=== PATIENT | male | born 1960 | race Hispanic/Latino ===

== ENCOUNTER 2019-06-19 18:31 | Emergency (ER) | payer OTHER ==
[2019-06-19 21:42] LABS: Absolute Lymphocytes (CBC) 1.3 K/uL (0.7-4.9); Basophils % 0.4 % (0-1.3); Hematocrit 47.7 % (39.6-49.0); MPV 8.3 fL (7.6-11.3); RBC Red Blood Cell Count 5.61 M/uL (4.33-5.43)
[2019-06-19 21:47] LABS: Protime INR 1.18
[2019-06-19 21:54] LABS: ALT/SGPT 29 U/L (12-78); AST/SGOT 15 U/L (15-37); Albumin 3.8 g/dL (3.4-5.0); Alkaline Phosphatase 69 U/L (45-117); BUN Blood Urea Nitrogen 15 mg/dL (7-18); Bicarbonate 25 mmol/L (21-32); Bilirubin Direct 0.4 mg/dL (0-0.2); Bilirubin Total 1.5 mg/dL (0.2-1.0); Glucose Level 191 mg/dL (74-106); Lipase 83 U/L (73-393); Magnesium 2.1 mg/dL (1.8-2.4); NT PRO-BNP 107 pg/mL (<125); Potassium 3.2 mmol/L (3.5-5.1); Protein, Total 8.1 g/dL (6.4-8.2); Sodium Level 138 mmol/L (136-145); Troponin (Emerg Dept Use Only) < 0.02 ng/mL (0.0-0.045)
[2019-06-19] MEDS ORDERED: NA CHLORIDE 0.9% 1,000 ML ONE (22:00)
--- NOTE | 2019-06-19 22:06 | RAD REPORT ---
EXAM DESCRIPTION: CT - Stone Protocol - 06/19/2019 9:29 pm CLINICAL HISTORY: Pelvic pain, bilateral groin pain COMPARISON: None. TECHNIQUE: Axial 5 mm thick images were obtained without oral or IV contrast. The [id number] span s the entirety of the system including uppermost abdomen and lung bases. All CT scans are performed using dose optimization technique as appropriate and may include automated exposure control or mA/KV adjustment according to patient size. FINDINGS: Bilateral hydronephrosis is present [id number] in degree. No obstructing or nonobstr ucting calculi. Urinary bladder is dilated. No bladder wall thickening or mass identified. Prostate g land is prominent. No invasion of adjacent structures. No seminal vesicle abnormality. No suspicious renal masses. Isodense masses and pyelonephritis are not excluded on a stone protocol CT scan. No sig nificant adrenal finding. Pronounced fatty infiltration is present in the liver. No focal liver lesion. Spleen and pancreas fernanda w no acute findings. Cholecystectomy clips are present. No biliary tree dilatation. No suspicious bowel findings. No hernia, mass or bulky lymphadenopathy noted. No free air, free fluid or inflammatory stranding. No significant bony abnormality. IMPRESSION: Mild to moderate hydronephrosis and dilated urinary bladder. No obstructing calculi seen . Prostate gland is prominent. Central prostatic mass or prostatic urethral stricture could be present. Diffuse fatty infiltration of the liver. Isodense masses and pyelonephritis are not excluded on stone protocol technique.
--- NOTE | 2019-06-19 22:46 | ER ---
Nurse's Notes [facility] Name: John Avila Age: 58 yrs Sex: Male : 1960 Arrival Date: 06/19/2019 Time: 18:34 Bed 16 Private MD: Diagnosis: Retention of urine;Type 2 diabetes mellitus;Urinary tract infection, site not specified Presentation: 06/19 18:55 Presenting complaint: Patient states: Pain in ERICA groin area since Wednesday, denies la1 fever, denies N/V/D. Transition of care: patient was not received from another setting of care. Onset of symptoms was June 19, 2019. Risk Assessment: Do you want to hurt yourself or someone else? Patient reports no desire to harm self or others. Initial Sepsis Screen: Does the patient meet any 2 criteria? No. Patient's initial sepsis screen is negative. Does the patient have a suspected source of infection? No. Patient's initial sepsis screen is negative. Care prior to arrival: None. 18:55 Method Of Arrival: Ambulatory la1 18:55 Acuity: ZANDER 3 la1 Historical: - Allergies: 18:56 NKDA; la1 - PMHx: 18:56 CHF; Diabetes - NIDDM; Hypertension; la1 - Immunization history:: Adult Immunizations up to date. - Social history:: Smoking status: Patient/guardian denies using tobacco. - Ebola Screening: : No symptoms or risks identified at this time. - Family history:: not pertinent. Screenin:38 Abuse screen: Denies threats or abuse. Nutritional screening: No deficits noted. jb4 Tuberculosis screening: No symptoms or risk factors identified. Fall Risk None identified. Assessment: 20:35 General: Appears in no apparent distress. comfortable, Behavior is calm, cooperative, jb4 appropriate for age. Pain: Complains of pain in lumbar area, left low back, right inguinal area and left inguinal area Pain does not radiate. Pain currently is 7 out of 10 on a pain scale. Neuro: Level of Consciousness is awake, alert, obeys commands, Oriented to person, place, time, situation. Cardiovascular: Patient's skin is warm and dry. Respiratory: Airway is patent Respiratory effort is even, unlabored, Respiratory pattern is regular, symmetrical. GI: No deficits noted. No signs and/or symptoms were reported involving the gastrointestinal system. : Bladder is distended Reports pain in left flank(s), urinary frequency. EENT: No deficits noted. No signs and/or symptoms were reported regarding the EENT system. Derm: Skin is intact, Skin is pink, warm \T\ dry. Musculoskeletal: Circulation, motion, and sensation intact. Range of motion: intact in all extremities. 21:30 Reassessment: Patient appears in no apparent distress at this time. Patient and/or jb4 family updated on plan of care and expected duration. Pain level reassessed. Patient is alert, oriented x 3, equal unlabored respirations, skin warm/dry/pink. 22:30 Reassessment: Patient appears in no apparent distress at this time. Patient and/or jb4 family updated on plan of care and expected duration. Pain level reassessed. Patient is alert, oriented x 3, equal unlabored respirations, skin warm/dry/pink. 900ml initial output from andersen Patient states feeling better. 22:45 Reassessment: D/c pending drainage of bladder. Currently draining at 1L/3min. jb4 22:50 Reassessment: 525 output from andersen. jb4 23:40 Reassessment: Patient appears in no apparent distress at this time. Patient and/or jb4 family updated on plan of care and expected duration. Pain level reassessed. Patient is alert, oriented x 3, equal unlabored respirations, skin warm/dry/pink. 800 ml output, Andersen clamped. 06/20 00:15 Reassessment: Patient appears in no apparent distress at this time. Patient and/or jb4 family updated on plan of care and expected duration. Pain level reassessed. Patient is alert, oriented x 3, equal unlabored respirations, skin warm/dry/pink. PT verbalized understanding of d/c and follow up instructions. ambulated out with steady gait. Vital Signs: 06/19 18:56 BP 165 / 86; Pulse 74; Resp 16; Temp 98.7; Pulse Ox 94% on R/A; Weight 108.86 kg; la1 19:53 BP 178 / 95; Pulse 99; Resp 18; Temp 98; Pulse Ox 97% on R/A; jd2 20:38 BP 171 / 99; Pulse 95; Resp 18; Pulse Ox 99% on R/A; jb4 22:10 BP 153 / 100; Pulse 97; Resp 20; Pulse Ox 100% on R/A; jd2 23:26 BP 146 / 83; Pulse 91; Resp 18; Pulse Ox 98% on R/A; jd2 ED Course: 18:34 Patient arrived in ED. am2 18:56 Triage completed. la1 18:56 Arm band placed on right wrist. la1 19:37 Presley Daley, RN is Primary Nurse. jb4 19:40 Cm Arzate MD is Attending Physician. amanda 20:38 Patient has correct armband on for positive identification. Placed in gown. Bed in low jb4 position. Call light in reach. Side rails up X 1. Pulse ox on. NIBP on. 21:15 Radiology exam delayed due to getting labs drawn at this time. nj 21:26 Inserted saline lock: 22 gauge in right antecubital area, using aseptic technique. jd2 Blood collected. 21:29 CT Stone Protocol In Process Unspecified. EDMS 21:46 XRAY Chest (1 view) In Process Unspecified. EDMS 21:55 Bladder scan completed. 980. jb4 22:44 Danie Flower MD is Referral Physician. amanda 06/20 00:15 No provider procedures requiring assistance completed. IV discontinued, intact, jb4 bleeding controlled, No redness/swelling at site. Pressure dressing applied. Administered Medications: 06/19 22:15 Drug: NS 0.9% 1000 ml Route: IV; Rate: 125 ml/hr; Site: right antecubital; jb4 06/20 00:19 Follow up: Response: No adverse reaction; IV Status: Order to discontinue infusion; IV jb4 Intake: 250ml 06/19 23:24 Drug: Rocephin 1 grams Route: IV; Rate: per protocol; Site: right antecubital; jb4 23:27 Follow up: Response: No adverse reaction; IV Status: Completed infusion; IV Intake: [id number] 23:24 Drug: Cipro 500 mg Route: PO; jb4 06/20 00:18 Follow up: Response: No adverse reaction jb4 06/19 23:25 Drug: Flomax 0.4 mg Route: PO; jb4 06/20 00:18 Follow up: Response: No adverse reaction jb4 Intake: 06/19 23:27 IV: 10ml; Total: 10ml. jb4 06/20 00:19 IV: 250ml; Total: 260ml. jb4 Output: 00:17 Urine: 2775ml (Andersen); Total: 2775ml. jb4 Outcome: 06/19 22:45 Discharge ordered by . amanda 06/20 00:15 Discharged to home ambulatory, with family. jb4 Condition: stable Discharge instructions given to patient, family, Instructed on discharge instructions, follow up and referral plans. medication usage, Demonstrated understanding of instructions, follow-up care, medications, Prescriptions given X 2. 00:20 Patient left the ED. jb4 Signatures: Dispatcher [employer] EDNY Cm Arzate MD MD cha Attema, Lee RN RN la1 Rubén Schreiber James RN RN [email or web address] Derek Trivedi Amanda am2 Corrections: (The following items were deleted from the chart) 06/19 21:56 20:35 : Reports pain in left flank(s), urinary frequency, jb4 jb4 06/20 00:19 00:18 Response: No adverse reaction; IV Status: Order to discontinue infusion; IV jb4 Intake: 300ml jb4
--- NOTE | 2019-06-19 22:46 | EDPHYS ---
Physician Documentation [facility] Name: John Avila Age: 58 yrs Sex: Male : 1960 Arrival Date: 06/19/2019 Time: 18:34 Bed 16 Private MD: Cm Monrael HPI: 06/19 21:04 This 58 yrs old Male presents to ER via Ambulatory with complaints of Groin amanda Pain. 21:04 The patient presents with abdominal pain in the lower abdomen. Onset: The amanda symptoms/episode began/occurred 3 day(s) ago. The patient presents with urinary symptoms, urinary frequency. Onset: The symptoms/episode began/occurred 3 day(s) ago. Modifying factors: The symptoms are alleviated by nothing, the symptoms are aggravated by nothing. Associated signs and symptoms: The patient has no apparent associated signs or symptoms. The symptoms do not radiate. Severity of pain: At its worst the pain was mild moderate in the emergency department the pain is unchanged. Historical: - Allergies: 18:56 NKDA; la1 - PMHx: 18:56 CHF; Diabetes - NIDDM; Hypertension; la1 - Immunization history:: Adult Immunizations up to date. - Social history:: Smoking status: Patient/guardian denies using tobacco. - Ebola Screening: : No symptoms or risks identified at this time. - Family history:: not pertinent. ROS: 21:04 Constitutional: Negative for fever, chills, and weight loss, Eyes: Negative for injury, amanda pain, redness, and discharge, ENT: Negative for injury, pain, and discharge, Neck: Negative for injury, pain, and swelling, Cardiovascular: Negative for chest pain, palpitations, and edema, Respiratory: Negative for shortness of breath, cough, wheezing, and pleuritic chest pain, Back: Negative for injury and pain, : Negative for injury, bleeding, discharge, and swelling, MS/Extremity: Negative for injury and deformity, Skin: Negative for injury, rash, and discoloration, Neuro: Negative for headache, weakness, numbness, tingling, and seizure, Psych: Negative for depression, anxiety, suicide ideation, homicidal ideation, and hallucinations, Allergy/Immunology: Negative for hives, rash, and allergies, Endocrine: Negative for neck swelling, polydipsia, polyuria, polyphagia, and marked weight changes, Hematologic/Lymphatic: Negative for swollen nodes, abnormal bleeding, and unusual bruising. 21:04 Abdomen/GI: Positive for abdominal pain, of the suprapubic area, right lower quadrant and left lower quadrant. Exam: 21:04 Constitutional: This is a well developed, well nourished patient who is awake, alert, amanda and in no acute distress. Head/Face: Normocephalic, atraumatic. Eyes: Pupils equal round and reactive to light, extra-ocular motions intact. Lids and lashes normal. Conjunctiva and sclera are non-icteric and not injected. Cornea within normal limits. Periorbital areas with no swelling, redness, or edema. ENT: Nares patent. No nasal discharge, no septal abnormalities noted. Tympanic membranes are normal and external auditory canals are clear. Oropharynx with no redness, swelling, or masses, exudates, or evidence of obstruction, uvula midline. Mucous membranes moist. Neck: Trachea midline, no thyromegaly or masses palpated, and no cervical lymphadenopathy. Supple, full range of motion without nuchal rigidity, or vertebral point tenderness. No Meningismus. Chest/axilla: Normal chest wall appearance and motion. Nontender with no deformity. No lesions are appreciated. Cardiovascular: Regular rate and rhythm with a normal S1 and S2. No gallops, murmurs, or rubs. Normal PMI, no JVD. No pulse deficits. Respiratory: Lungs have equal breath sounds bilaterally, clear to auscultation and percussion. No rales, rhonchi or wheezes noted. No increased work of breathing, no retractions or nasal flaring. Back: No spinal tenderness. No costovertebral tenderness. Full range of motion. Male : Normal genitalia with no discharge or lesions. Skin: Warm, dry with normal turgor. Normal color with no rashes, no lesions, and no evidence of cellulitis. MS/ Extremity: Pulses equal, no cyanosis. Neurovascular intact. Full, normal range of motion. Neuro: Awake and alert, GCS 15, oriented to person, place, time, and situation. Cranial nerves II-XII grossly intact. Motor strength 5/5 in all extremities. Sensory grossly intact. Cerebellar exam normal. Normal gait. Psych: Awake, alert, with orientation to person, place and time. Behavior, mood, and affect are within normal limits. 21:04 Abdomen/GI: Inspection: abdomen appears normal, Bowel sounds: normal, Palpation: mild abdominal tenderness, in the right lower quadrant and left lower quadrant, Liver: no appreciated palpable abnormalities, Hernia: not appreciated. Vital Signs: 18:56 BP 165 / 86; Pulse 74; Resp 16; Temp 98.7; Pulse Ox 94% on R/A; Weight 108.86 kg; la1 19:53 BP 178 / 95; Pulse 99; Resp 18; Temp 98; Pulse Ox 97% on R/A; jd2 20:38 BP 171 / 99; Pulse 95; Resp 18; Pulse Ox 99% on R/A; jb4 22:10 BP 153 / 100; Pulse 97; Resp 20; Pulse Ox 100% on R/A; jd2 23:26 BP 146 / 83; Pulse 91; Resp 18; Pulse Ox 98% on R/A; jd2 MDM: 19:40 Patient medically screened. [facility] 21:06 Data reviewed: vital signs, nurses notes, lab test result(s), EKG, radiologic studies, [facility] CT scan, plain films. 06/19 21:04 Order name: Basic Metabolic Panel; Complete Time: 22:41 [facility] 06/19 21:04 Order name: CBC with Diff; Complete Time: 22:41 [facility] 06/19 21:04 Order name: LFT's; Complete Time: 22:41 [facility] 06/19 21:04 Order name: Magnesium; Complete Time: 22:41 [facility] 06/19 21:04 Order name: NT PRO-BNP; Complete Time: 22:41 [facility] 06/19 21:04 Order name: PT-INR; Complete Time: 22:41 [facility] 06/19 21:04 Order name: Troponin (emerg Dept Use Only); Complete Time: 22:41 [facility] 06/19 21:04 Order name: XRAY Chest (1 view) [facility] 06/19 21:04 Order name: Lipase; Complete Time: 22:41 [facility] 06/19 21:04 Order name: CT Stone Protocol; Complete Time: 22:41 [facility] 06/19 21:04 Order name: Urine Culture [facility] 06/19 21:16 Order name: Urine Dipstick--Ancillary (enter results) [place] 06/19 21:04 Order name: EKG; Complete Time: 21:05 [facility] 06/19 21:04 Order name: Cardiac monitoring; Complete Time: 21:18 [facility] 06/19 21:04 Order name: EKG - Nurse/Tech; Complete Time: 21:41 [facility] 06/19 21:04 Order name: IV Saline Lock; Complete Time: 21:18 [facility] 06/19 21:04 Order name: Labs collected and sent; Complete Time: 21:18 [facility] 06/19 21:04 Order name: O2 Per Protocol; Complete Time: 21:18 [facility] 06/19 21:04 Order name: O2 Sat Monitoring; Complete Time: 21:18 [facility] 06/19 21:04 Order name: Urine Dipstick-Ancillary (obtain specimen); Complete Time: 21:18 [facility] 06/19 21:04 Order name: Bladder Scanner: get pvr, if greater 100, andersen; Complete Time: 21:56 [facility] 06/19 22:42 Order name: Leg Bag; Complete Time: 00:17 [facility] 06/19 22:47 Order name: PO challenge: juice, oj; Complete Time: 23:00 [facility] Administered Medications: 22:15 Drug: NS 0.9% 1000 ml Route: IV; Rate: 125 ml/hr; Site: right antecubital; [facility] 06/20 00:19 Follow up: Response: No adverse reaction; IV Status: Order to discontinue infusion; IV [facility] Intake: 250ml 06/19 23:24 Drug: Rocephin 1 grams Route: IV; Rate: per protocol; Site: right antecubital; 4 23:27 Follow up: Response: No adverse reaction; IV Status: Completed infusion; IV Intake: [id number] 23:24 Drug: Cipro 500 mg Route: PO; 4 06/20 00:18 Follow up: Response: No adverse reaction 4 06/19 23:25 Drug: Flomax 0.4 mg Route: PO; 4 06/20 00:18 Follow up: Response: No adverse reaction [facility] Disposition: 06/19/19 22:45 Discharged to Home. Impression: Retention of urine, Type 2 diabetes mellitus, Urinary tract infection, site not specified. - Condition is Stable. - Discharge Instructions: Type 2 Diabetes Mellitus, Diagnosis, Adult, Dysuria, Andersen Catheter Care, Adult, Urinary Tract Infection, Adult, Urinary Tract Infection, Adult, [id number]-[id number], Acute Urinary Retention, Male, Dhak-[id number], Type 2 Diabetes Mellitus, Diagnosis, Adult, [id number]-[id number], Andersen Catheter Care, Adult, Cicg-kj-[id number]. - Prescriptions for Flomax 0.4 mg Oral Capsule, Sust. Release 24 hr - take 1 capsule by ORAL route once daily 1/2 hour following the same meal each day; 30 capsule. Cipro 500 mg Oral Tablet - take 1 tablet by ORAL route every 12 hours for 7 days; 14 tablet. - Medication Reconciliation Form, Thank You Letter, Antibiotic Education, Prescription Opioid Use form. - Follow up: Private Physician; When: 2 - 3 days; Reason: Recheck today's complaints, Continuance of care, Re-evaluation by your physician. Follow up: Danie Flower MD; When: 2 - 3 days; Reason: Recheck today's complaints, Re-evaluation by your physician. - Problem is new. - Symptoms have improved. Signatures: Dispatcher [employer] EDIL Cm Arzate MD MD cha Attema, Lee RN RN la1 Presley Daley RN RN jb4 Corrections: (The following items were deleted from the chart) 00:20 06/19 22:45 06/19/2019 22:45 Discharged to Home. Impression: Retention of urine; Type 2 jb4 diabetes mellitus; Urinary tract infection, site not specified. Condition is Stable. Forms are Medication Reconciliation Form, Thank You Letter, Antibiotic Education, Prescription Opioid Use. Follow up: Private Physician; When: 2 - 3 days; Reason: Recheck today's complaints, Continuance of care, Re-evaluation by your physician. Follow up: Danie Flower; When: 2 - 3 days; Reason: Recheck today's complaints, Re-evaluation by your physician. Problem is new. Symptoms have improved. amanda
[2019-06-19] MEDS ORDERED: CIPROFLOXACIN HCL 500 MG TAB ONE (23:13)
[2019-06-19] MEDS ORDERED: TAMSULOSIN 0.4 MG SR CAP ONE (23:13)
[2019-06-19] MEDS ORDERED: CEFTRIAXONE/SWI 1gm 1 GM/10 ML SYR ONE (23:14)
[2019-06-20 00:05] LABS: Urine Blood 1+ (NEG); Urine Glucose 1+ (NEG); Urine Specific Gravity <1.005 (1.005-1.030)
[2019-06-20 00:06] LABS: Urine Protein NEGATIVE (NEG); Urine pH 5.5 (5.0-7.0)
[2019-06-20 01:21] VITALS: TEMP 98
[2019-06-20 01:25] VITALS: BP 146/83; O2SAT 98
--- NOTE | 2019-06-20 06:50 | RAD REPORT ---
EXAM DESCRIPTION: RAD - Chest Single View - 06/19/2019 9:45 pm CLINICAL HISTORY: Abdominal distention COMPARISON: March 2016 TECHNIQUE: AP portable chest image was obtained 2136 hours . FINDINGS: Lung volumes are low with clear lung rodriguez. No failure or volume overload. Heart and vasc ulature are normal. No measurable pleural effusion and no pneumothorax. No acute bony abnormality see n. No acute aortic findings suspected. No free air under the diaphragm. IMPRESSION: No acute cardiopulmonary process.
--- NOTE | 2019-06-20 07:24 | EKG ---
Test Date: 2019-06-19 Test Time: 21:38:56 Securities Settlement Processor: LISY MEASUREMENT RESULTS: Intervals: Rate: 92 OR: 144 QRSD: 98 QT: 380 QTc: 469 [place]: P: 55 OR: 144 QRS: -21 T: 23 INTERPRETIVE STATEMENTS: Normal sinus rhythm Septal infarct, age undetermined Abnormal ECG Compared to ECG 04/01/2016 17:27:43 Myocardial infarct finding now present Prolonged QT interval no longer present Electronically Signed On 06-20-19 07:23:04 CDT by Sampson Francis
== END 2019-06-20 00:20 | disposition home or self-care (01) ==
LOC: ER 18:31
DX: N39.0 Urinary tract infection, site not specified (principal); R33.9 Retention of urine, unspecified; E11.9 Type 2 diabetes mellitus without complications; I10 Essential (primary) hypertension
CPT/HCPCS: 96361; 93005; 87088; 85025; 87086; 80048; 36415; 83735; 85610; 80076; 81003; 84484; 83690; 83880; 76377; 74176; 71045; 96374; 99284; J0696; J7030

== ENCOUNTER 2019-06-28 10:31 | Emergency (ER) | payer OTHER ==
--- NOTE | 2019-06-28 11:48 | ER ---
Nurse's Notes [facility] Name: John Avila Age: 58 yrs Sex: Male : 1960 Arrival Date: 06/28/2019 Time: 10:34 Bed 20 Private MD: Diagnosis: Urinary tract infection, site not specified;Retention of urine Presentation: 06/28 10:51 Presenting complaint: Patient states: had andersen placed here on Wednesday and now has aa5 suprapubic pain that began last night. Pt reports the last time he emptied the andersen bag was this morning but it was only a small amount and now reports andersen bag is full of urine and has now decreased his pain. Pt also reports he has appointment with unknown doctor on Wednesday. Transition of care: patient was not received from another setting of care. Onset of symptoms was June 2019. Risk Assessment: Do you want to hurt yourself or someone else? Patient reports no desire to harm self or others. Initial Sepsis Screen: Does the patient meet any 2 criteria? No. Patient's initial sepsis screen is negative. Does the patient have a suspected source of infection? No. Patient's initial sepsis screen is negative. Care prior to arrival: None. 10:51 Acuity: ZANDER 4 aa5 10:51 Method Of Arrival: Ambulatory aa5 Historical: - Allergies: 10:51 NKDA; aa5 - PMHx: 10:51 CHF; Diabetes - NIDDM; Hypertension; aa5 - Immunization history:: Adult Immunizations unknown. - Social history:: Smoking status: Patient/guardian denies using tobacco. - Ebola Screening: : No symptoms or risks identified at this time. - Family history:: not pertinent. Screenin:15 Abuse screen: Denies threats or abuse. Denies injuries from another. Nutritional aj1 screening: No deficits noted. Tuberculosis screening: No symptoms or risk factors identified. 15:03 Fall Risk None identified. aj1 Assessment: 11:15 General: Appears in no apparent distress. uncomfortable, Behavior is calm, cooperative, aj1 appropriate for age. Pain: Complains of pain in suprapubic area. Neuro: Level of Consciousness is awake, alert, obeys commands, Oriented to person, place, time, situation. Cardiovascular: Patient's skin is warm and dry. Respiratory: Airway is patent Respiratory effort is even, unlabored, Respiratory pattern is regular, symmetrical. GI: No signs and/or symptoms were reported involving the gastrointestinal system. : Andersen in place to gravity drainage bag is distended with urine, leg bag is secured around patient's lower leg. Instructed patient to empty andersen any time it becomes full instructed patient to attach leg bag to thigh, not calf. Patient verbalized understanding of instruction large amount of white drainage noted around urinary meatus. Patient was instructed on proper self hygiene. Verbalized understanding. EENT: No signs and/or symptoms were reported regarding the EENT system. Derm: No signs and/or symptoms reported regarding the dermatologic system. Skin is pink, warm \T\ dry. normal. Musculoskeletal: No signs and/or symptoms reported regarding the musculoskeletal system. Circulation, motion, and sensation intact. 12:15 Reassessment: Patient appears in no apparent distress at this time. No changes from aj1 previously documented assessment. Patient and/or family updated on plan of care and expected duration. Pain level reassessed. Patient is alert, oriented x 3, equal unlabored respirations, skin warm/dry/pink. 13:15 Reassessment: Patient appears in no apparent distress at this time. No changes from aj1 previously documented assessment. Patient and/or family updated on plan of care and expected duration. Pain level reassessed. Patient is alert, oriented x 3, equal unlabored respirations, skin warm/dry/pink. 14:22 Reassessment: Patient and/or family updated on plan of care and expected duration. Pain aj1 level reassessed. General: Appears in no apparent distress. comfortable, Behavior is calm, cooperative, appropriate for age. Neuro: Level of Consciousness is awake, alert, obeys commands, Oriented to person, place, time, situation. Cardiovascular: Patient's skin is warm and dry. Respiratory: Airway is patent Respiratory effort is even, unlabored, Respiratory pattern is regular, symmetrical. Derm: Skin is pink, warm \T\ dry. normal. Musculoskeletal: Circulation, motion, and sensation intact. 15:02 Reassessment: Patient appears in no apparent distress at this time. No changes from aj1 previously documented assessment. Patient and/or family updated on plan of care and expected duration. Pain level reassessed. Patient is alert, oriented x 3, equal unlabored respirations, skin warm/dry/pink. Vital Signs: 10:55 BP 133 / 76; Pulse 112; Resp 18 S; Temp 97.8(O); Pulse Ox 98% on R/A; Pain 9/10; aa5 15:03 BP 127 / 85; Pulse 102; Resp 20; Pulse Ox 97% on R/A; aj1 ED Course: 10:34 Patient arrived in ED. am2 10:51 Arm band placed on. aa5 10:54 Triage completed. aa5 10:57 Anay Marr, RN is Primary Nurse. aj1 10:58 Cm Arzate MD is Attending Physician. [facility] 11:15 Patient has correct armband on for positive identification. Bed in low position. Call aj1 light in reach. 11:15 No provider procedures requiring assistance completed. aj1 11:46 Danie Flower MD is Referral Physician. [facility] 12:30 Andersen cath removed intact, balloon deflated. aj1 12:35 Andersen cath inserted, using sterile technique, 16 Fr., by id, balloon inflated, to aj1 gravity drainage, clamped. 14:37 Changed andersen catheter bag to leg bag. [facility] 15:03 Patient did not have IV access during this emergency room visit. aj1 Administered Medications: 13:09 Drug: Cipro 500 mg Route: PO; 1 15:03 Follow up: Response: No adverse reaction [facility] 15:02 Drug: Motrin 600 mg Route: PO; [facility] 15:03 Follow up: Response: No adverse reaction aj Outcome: 11:47 Discharge ordered by . [facility] 15:03 Discharged to home ambulatory. 1 15:03 Condition: good 15:03 Discharge instructions given to patient, Instructed on discharge instructions, follow up and referral plans. medication usage, Demonstrated understanding of instructions, follow-up care, medications, Prescriptions given X 2. 15:04 Patient left the ED. aj1 Signatures: Anay Marr, RN RN aj1 Cm Arzate MD MD cha Calderon, Audri RN RN Rowan Pitts Deanna [facility]
--- NOTE | 2019-06-28 11:48 | EDPHYS ---
Physician Documentation [facility] Name: John Avila Age: 58 yrs Sex: Male : 1960 Arrival Date: 06/28/2019 Time: 10:34 Bed 20 Private MD: Cm Monreal HPI: 06/28 11:41 This 58 yrs old Male presents to ER via Ambulatory with complaints of Problem amanda With Urinary Catheter. 11:41 The patient presents with a Andersen catheter problem, irritated. Onset: The amanda symptoms/episode began/occurred 1 day(s) ago. Modifying factors: The symptoms are alleviated by remaining still, the symptoms are aggravated by movement. Severity of symptoms: At their worst the symptoms were mild, in the emergency department the symptoms are unchanged. Historical: - Allergies: 10:51 NKDA; aa5 - PMHx: 10:51 CHF; Diabetes - NIDDM; Hypertension; aa5 - Immunization history:: Adult Immunizations unknown. - Social history:: Smoking status: Patient/guardian denies using tobacco. - Ebola Screening: : No symptoms or risks identified at this time. - Family history:: not pertinent. ROS: 11:41 Constitutional: Negative for fever, chills, and weight loss, Eyes: Negative for injury, amanda pain, redness, and discharge, ENT: Negative for injury, pain, and discharge, Neck: Negative for injury, pain, and swelling, Cardiovascular: Negative for chest pain, palpitations, and edema, Respiratory: Negative for shortness of breath, cough, wheezing, and pleuritic chest pain, Abdomen/GI: Negative for abdominal pain, nausea, vomiting, diarrhea, and constipation, Back: Negative for injury and pain, MS/Extremity: Negative for injury and deformity, Skin: Negative for injury, rash, and discoloration, Neuro: Negative for headache, weakness, numbness, tingling, and seizure, Psych: Negative for depression, anxiety, suicide ideation, homicidal ideation, and hallucinations, Allergy/Immunology: Negative for hives, rash, and allergies, Endocrine: Negative for neck swelling, polydipsia, polyuria, polyphagia, and marked weight changes, Hematologic/Lymphatic: Negative for swollen nodes, abnormal bleeding, and unusual bruising. 11:41 : Positive for urinary symptoms, burning with urination, difficulty urinating. Exam: 11:41 Constitutional: This is a well developed, well nourished patient who is awake, alert, amanda and in no acute distress. Head/Face: Normocephalic, atraumatic. Eyes: Pupils equal round and reactive to light, extra-ocular motions intact. Lids and lashes normal. Conjunctiva and sclera are non-icteric and not injected. Cornea within normal limits. Periorbital areas with no swelling, redness, or edema. ENT: Nares patent. No nasal discharge, no septal abnormalities noted. Tympanic membranes are normal and external auditory canals are clear. Oropharynx with no redness, swelling, or masses, exudates, or evidence of obstruction, uvula midline. Mucous membranes moist. Neck: Trachea midline, no thyromegaly or masses palpated, and no cervical lymphadenopathy. Supple, full range of motion without nuchal rigidity, or vertebral point tenderness. No Meningismus. Chest/axilla: Normal chest wall appearance and motion. Nontender with no deformity. No lesions are appreciated. Cardiovascular: Regular rate and rhythm with a normal S1 and S2. No gallops, murmurs, or rubs. Normal PMI, no JVD. No pulse deficits. Respiratory: Lungs have equal breath sounds bilaterally, clear to auscultation and percussion. No rales, rhonchi or wheezes noted. No increased work of breathing, no retractions or nasal flaring. Abdomen/GI: Soft, non-tender, with normal bowel sounds. No distension or tympany. No guarding or rebound. No evidence of tenderness throughout. Back: No spinal tenderness. No costovertebral tenderness. Full range of motion. Skin: Warm, dry with normal turgor. Normal color with no rashes, no lesions, and no evidence of cellulitis. MS/ Extremity: Pulses equal, no cyanosis. Neurovascular intact. Full, normal range of motion. Neuro: Awake and alert, GCS 15, oriented to person, place, time, and situation. Cranial nerves II-XII grossly intact. Motor strength 5/5 in all extremities. Sensory grossly intact. Cerebellar exam normal. Normal gait. Psych: Awake, alert, with orientation to person, place and time. Behavior, mood, and affect are within normal limits. 11:41 : Male external genitalia: normal, Bladder: is normal, a andersen is noted. Vital Signs: 10:55 BP 133 / 76; Pulse 112; Resp 18 S; Temp 97.8(O); Pulse Ox 98% on R/A; Pain 9/10; aa5 15:03 BP 127 / 85; Pulse 102; Resp 20; Pulse Ox 97% on R/A; aj1 MDM: 10:58 Patient medically screened. [facility] 11:41 Data reviewed: vital signs, nurses notes, lab test result(s), radiologic studies, CT [facility] scan. 06/28 11:40 Order name: Urine Culture [facility] 06/28 12:41 Order name: Urine Dipstick--Ancillary (enter results); Complete Time: 13:50 gm 06/28 11:40 Order name: Andersen; Complete Time: 12:52 [facility] 06/28 11:40 Order name: Leg Bag; Complete Time: 14:39 [facility] 06/28 11:40 Order name: Urine Dipstick-Ancillary (obtain specimen); Complete Time: 12:52 [facility] Administered Medications: 13:09 Drug: Cipro 500 mg Route: PO; aj 15:03 Follow up: Response: No adverse reaction [facility] 15:02 Drug: Motrin 600 mg Route: PO; aj1 15:03 Follow up: Response: No adverse reaction aj1 Disposition: 06/28/19 11:47 Discharged to Home. Impression: Urinary tract infection, site not specified, Retention of urine. - Condition is Stable. - Discharge Instructions: Dysuria, Andersen Catheter Care, Adult, Urinary Tract Infection, Adult, Urinary Tract Infection, Adult, [id number], Acute Urinary Retention, Male, [id number], Andersen Catheter Care, Adult, [id number]. - Prescriptions for Cipro 250 mg Oral Tablet - take 1 tablet by ORAL route every 12 hours; 14 tablet. Flomax 0.4 mg Oral Capsule, Sust. Release 24 hr - take 1 capsule by ORAL route once daily 1/2 hour following the same meal each day; 30 capsule. - Medication Reconciliation Form, Thank You Letter, Antibiotic Education, Prescription Opioid Use form. - Follow up: Private Physician; When: 2 - 3 days; Reason: Recheck today's complaints, Continuance of care, Re-evaluation by your physician. Follow up: Danie Flower MD; When: 2 - 3 days; Reason: Recheck today's complaints, Continuance of care, Re-evaluation by your physician. - Problem is new. - Symptoms have improved. Signatures: Dispatcher [employer] Anay Cook RN RN aj1 Cm Arzate MD MD cha Calderon, Audri RN RN aa5 Corrections: (The following items were deleted from the chart) 15:04 11:47 06/28/2019 11:47 Discharged to Home. Impression: Urinary tract infection, site aj1 not specified; Retention of urine. Condition is Stable. Forms are Medication Reconciliation Form, Thank You Letter, Antibiotic Education, Prescription Opioid Use. Follow up: Private Physician; When: 2 - 3 days; Reason: Recheck today's complaints, Continuance of care, Re-evaluation by your physician. Follow up: Danie Flower; When: 2 - 3 days; Reason: Recheck today's complaints, Continuance of care, Re-evaluation by your physician. Problem is new. Symptoms have improved. amanda
[2019-06-28 12:57] LABS: Urine Blood 2+ (NEG); Urine Glucose NEGATIVE (NEG); Urine Protein NEGATIVE (NEG)
[2019-06-28] MEDS ORDERED: CIPROFLOXACIN HCL 500 MG TAB ONE (13:04)
[2019-06-28] MEDS ORDERED: IBUPROFEN 200 MG TAB PO ONE (14:52)
[2019-06-28 15:21] VITALS: TEMP 97.8
[2019-06-28 15:22] VITALS: BP 127/85; O2SAT 97
== END 2019-06-28 15:04 | disposition home or self-care (01) ==
LOC: ER 10:31
DX: N39.0 Urinary tract infection, site not specified (principal); R33.9 Retention of urine, unspecified
CPT/HCPCS: 51702; 81003; 87086; 87088; 99284

== ENCOUNTER 2019-07-18 12:26 | Inpatient (IN) | payer OTHER ==
--- NOTE | 2019-07-18 14:14 | RAD REPORT ---
EXAM DESCRIPTION: CT - Head Brain Wo Cont - 07/18/2019 2:06 pm CLINICAL HISTORY: Dizziness, presyncope COMPARISON: None. TECHNIQUE: Axial 5 mm thick images of the head were obtained without IV contrast. All CT scans are performed using dose optimization technique as appropriate and may include automated exposure control or mA/KV adjustment according to patient size. FINDINGS: No intracranial hemorrhage, mass, edema or shift of mid-line structures. No acute infarcti on changes seen. No abnormal extra-axial fluid collections. Ventricles are normal. Mastoid air cells and visualized portions of the paranasal sinuses are clear. No acute bony findings. IMPRESSION: Negative non-contrast CT head examination.
[2019-07-18 14:17] LABS: Basophils % 0.4 % (0-1.3); Hematocrit 44.6 % (39.6-49.0); Lymphocytes % 11.4 % (15.3-44.8); MPV 8.7 fL (7.6-11.3); RBC Red Blood Cell Count 5.29 M/uL (4.33-5.43)
[2019-07-18 14:18] LABS: Protime INR 1.15
[2019-07-18 14:33] LABS: ALT/SGPT 33 U/L (12-78); AST/SGOT 20 U/L (15-37); Albumin 3.6 g/dL (3.4-5.0); Alkaline Phosphatase 51 U/L (45-117); BUN Blood Urea Nitrogen 120 mg/dL (7-18); Bicarbonate 20 mmol/L (21-32); Bilirubin Direct 0.2 mg/dL (0-0.2); Bilirubin Total 0.7 mg/dL (0.2-1.0); Glucose Level 123 mg/dL (74-106); Lipase 593 U/L (73-393); Magnesium 2.8 mg/dL (1.8-2.4); Protein, Total 8.5 g/dL (6.4-8.2); Sodium Level 139 mmol/L (136-145); Troponin (Emerg Dept Use Only) < 0.02 ng/mL (0.0-0.045)
[2019-07-18] MEDS ORDERED: KETOROLAC 30 MG/ML INJ ONE (14:40)
[2019-07-18] MEDS ORDERED: ONDANSETRON 4 MG/2 ML VIAL ONE (14:40)
[2019-07-18] MEDS ORDERED: NA CHLORIDE 0.9% 1,000 ML ONE ×2 (14:41→17:02)
[2019-07-18] MEDS ORDERED: FAMOTIDINE 20 MG/2 ML VIAL IV ONE (14:41)
[2019-07-18 14:56] LABS: Barbiturates NEGATIVE (NEGATIVE); Benzodiazepines NEGATIVE (NEGATIVE); Cocaine NEGATIVE (NEGATIVE); METHAMPHETAM NEGATIVE (NEGATIVE); Methadone NEGATIVE (NEGATIVE); Opiates NEGATIVE (NEGATIVE); Phencyclidine NEGATIVE (NEGATIVE); THC Cannibis NEGATIVE (NEGATIVE)
[2019-07-18 15:13] LABS: Urine Amorphous Sediment 1+ /HPF (NONE SEEN); Urine Bacteria >50 /HPF (NONE SEEN); Urine Culture Reflex Order REFLEXED
[2019-07-18 15:17] LABS: Urine Blood 2+ (NEG); Urine Glucose NEGATIVE (NEG); Urine Protein TRACE (NEG); Urine Specific Gravity 1.015 (1.005-1.030); Urine pH 5.5 (5.0-7.0)
--- NOTE | 2019-07-18 16:52 | EDPHYS ---
Physician Documentation [facility] Name: John Avila Age: 58 yrs Sex: Male : 1960 Arrival Date: 07/18/2019 Time: 12:27 Bed 28 Private MD: ED Physician Yemi Ennis HPI: 07/18 16:29 This 58 yrs old Male presents to ER via Ambulatory with complaints of wa Dizziness, Nausea/Vomiting. 16:29 The patient presents to the emergency department with vomiting, 4 times since the onset wa of symptoms, abdominal pain. Onset: The symptoms/episode began/occurred 3 day(s) ago. Possible causes: unknown. The symptoms are aggravated by nothing. The symptoms are alleviated by nothing. Associated signs and symptoms: Pertinent positives: abdominal pain, nausea, vomiting, Pertinent negatives: diarrhea, dysuria, fever. Severity of symptoms: At their worst the symptoms were moderate in the emergency department the symptoms are unchanged. The patient has not experienced similar symptoms in the past. The patient has been recently seen by a physician: 4 week(s) ago. 58 yo M w/ indwelling andersen x 1 month. h/o DM. c/o vomiting and low abd pain x 3-4 days. denies chest pain or SOB. denies diarrhea. admits to dizziness. Historical: - Allergies: 12:34 NKDA; sv - Home Meds: 12:34 metformin 1,000 mg Oral tab 1 tab 2 times per day [Active]; lisinopril 40 mg Oral tab 1 sv tab once daily [Active]; carvedilol 25 mg Oral tab 1 tab 2 times per day [Active]; terbinafine HCl 250 mg oral tab 1 tab once daily [Active]; pioglitazone 30 mg oral tab 1 tab once daily [Active]; levothyroxine 75 mcg tab 1 tab once daily [Active]; finasteride 5 mg oral tab 1 tab once daily [Active]; Zofran (as hydrochloride) 8 mg Oral tab [Active]; 13:49 hydrochlorothiazide 25 mg Oral tab 1 tab once daily [Active]; tamsulosin 0.4 mg Oral tw2 cp24 1 cap once daily [Active]; - PMHx: 12:34 CHF; Diabetes - NIDDM; Hypertension; sv - Immunization history:: Adult Immunizations. - Social history:: Smoking status: . - Ebola Screening: : Patient denies travel to an Ebola-affected area in the 21 days before illness onset. - Family history:: not pertinent. - Hospitalizations: : No recent hospitalization is reported. ROS: 16:33 Constitutional: Negative for fever, chills, and weight loss, Eyes: Negative for injury, wa pain, redness, and discharge, ENT: Negative for injury, pain, and discharge, Neck: Negative for injury, pain, and swelling, Cardiovascular: Negative for chest pain, palpitations, and edema, Respiratory: Negative for shortness of breath, cough, wheezing, and pleuritic chest pain, Back: Negative for injury and pain, MS/Extremity: Negative for injury and deformity, Skin: Negative for injury, rash, and discoloration, Neuro: Negative for headache, weakness, numbness, tingling, and seizure. 16:33 Abdomen/GI: Positive for abdominal pain, nausea and vomiting, Negative for diarrhea, constipation. 16:33 : Positive for noted indwelling andersen catheter. 16:33 All other systems are negative. Exam: 16:34 Constitutional: This is a well developed, well nourished patient who is awake, alert, wa and in no acute distress. Head/Face: Normocephalic, atraumatic. Eyes: Pupils equal round and reactive to light, extra-ocular motions intact. Lids and lashes normal. Conjunctiva and sclera are non-icteric and not injected. Cornea within normal limits. Periorbital areas with no swelling, redness, or edema. ENT: Nares patent. No nasal discharge, no septal abnormalities noted. Tympanic membranes are normal and external auditory canals are clear. Oropharynx with no redness, swelling, or masses, exudates, or evidence of obstruction, uvula midline. Mucous membranes moist. Neck: Trachea midline, no thyromegaly or masses palpated, and no cervical lymphadenopathy. Supple, full range of motion without nuchal rigidity, or vertebral point tenderness. No Meningismus. Chest/axilla: Normal chest wall appearance and motion. Nontender with no deformity. No lesions are appreciated. Cardiovascular: Regular rate and rhythm with a normal S1 and S2. No gallops, murmurs, or rubs. Normal PMI, no JVD. No pulse deficits. Respiratory: Lungs have equal breath sounds bilaterally, clear to auscultation and percussion. No rales, rhonchi or wheezes noted. No increased work of breathing, no retractions or nasal flaring. Back: No spinal tenderness. No costovertebral tenderness. Full range of motion. Skin: Warm, dry with normal turgor. Normal color with no rashes, no lesions, and no evidence of cellulitis. MS/ Extremity: Pulses equal, no cyanosis. Neurovascular intact. Full, normal range of motion. Neuro: Awake and alert, GCS 15, oriented to person, place, time, and situation. Cranial nerves II-XII grossly intact. Motor strength 5/5 in all extremities. Sensory grossly intact. Cerebellar exam normal. Normal gait. Psych: Awake, alert, with orientation to person, place and time. Behavior, mood, and affect are within normal limits. 16:34 Abdomen/GI: Inspection: abdomen appears normal, Bowel sounds: normal, in all quadrants, Palpation: soft, in all quadrants, mild abdominal tenderness, in the suprapubic area, right lower quadrant and left lower quadrant. Vital Signs: 12:36 BP 116 / 60; Pulse 102; Resp 20; Temp 97.4(O); Pulse Ox 98% ; Weight 98.43 kg; Height 5 sv ft. 6 in. (167.64 cm); 13:50 BP 96 / 64; Pulse 90; Resp 19; Pulse Ox 100% on R/A; tw2 15:15 BP 106 / 72; Pulse 89; Resp 16; Pulse Ox 100% on R/A; tr5 16:00 BP 101 / 60; Pulse 88; Resp 18; Pulse Ox 99% on R/A; tr5 17:42 BP 112 / 95; Pulse 91; Resp 16; Pulse Ox 99% on R/A; tr5 12:36 Body Mass Index 35.02 (98.43 kg, 167.64 cm) sv MDM: 13:42 Patient medically screened. wa 16:35 Differential diagnosis: Nonspecific abd pain, gastritis, pt with andersen. consider wa infection. 16:41 Data reviewed: vital signs, nurses notes, lab test result(s), radiologic studies. Test wa interpretation: by ED physician or midlevel provider: noted acute renal insufficiency. UTI. . 16:42 Test interpretation: by ED physician or midlevel provider: EKG: (interp by ks): HR 83. wa sinus. nml axis. mild incomplete interventricular delay. no acutely-appearing zonal ischemia changes. mildly peaked T waves. 17:49 Test interpretation: by ED physician or midlevel provider: CT abd/pelvis: no acute wa process. Response to treatment: the patient's symptoms have markedly improved after treatment. Physician consultation: Hilary Farias MD. 07/18 13:51 Order name: UDS; Complete Time: 16:04 sd 07/18 13:51 Order name: Basic Metabolic Panel; Complete Time: 16:03 sd 07/18 13:51 Order name: CBC with Diff; Complete Time: 16: sd 07/18 13:51 Order name: Hepatic Function; Complete Time: 16: sd 07/18 13:51 Order name: Lipase; Complete Time: 16: sd 07/18 13:51 Order name: Magnesium; Complete Time: 16: sd 07/18 13:51 Order name: CT Head Brain wo Cont; Complete Time: 16:04 sd 07/18 13:51 Order name: Protime (+inr); Complete Time: 16: sd 07/18 13:51 Order name: Troponin (emerg Dept Use Only); Complete Time: 16:04 sd 07/18 13:58 Order name: Glucose, Ancillary Testing; Complete Time: 16:04 [facility] 07/18 14:27 Order name: Urine Microscopic Only; Complete Time: 16:03 sd 07/18 15:14 Order name: Urine Dipstick--Ancillary (enter results); Complete Time: 16:03 07/18 15:15 Order name: Urine Culture [facility] 07/18 16:36 Order name: CT Abd/Pelvis - Without Contrast; Complete Time: 17:49 sd 07/18 13:51 Order name: EKG; Complete Time: 13:52 sd 07/18 13:51 Order name: Cardiac monitoring; Complete Time: 13:52 sd 07/18 13:51 Order name: EKG - Nurse/Tech; Complete Time: 14:21 sd 07/18 13:51 Order name: IV Saline Lock; Complete Time: 14:19 07/18 13:51 Order name: Labs collected and sent; Complete Time: 14:01 sd 07/18 13:51 Order name: NPO; Complete Time: 14:18 sd 07/18 13:51 Order name: O2 Per Protocol; Complete Time: 13:52 sd 07/18 13:51 Order name: O2 Sat Monitoring; Complete Time: 13:52 sd 07/18 13:51 Order name: Urine Dipstick-Ancillary (obtain specimen); Complete Time: 14:36 sd 07/18 17:02 Order name: CONS Physician Consult [facility] 07/18 14:27 Order name: Misc. Order: please change andersen out and send UA from fresh batch of urine; sd Complete Time: 15:12 Administered Medications: 14:46 Drug: NS 0.9% 1000 ml Route: IV; Rate: 1 bolus; Site: left antecubital; tr5 14:46 Drug: Pepcid 20 mg Route: IVP; Site: left antecubital; tr5 16:08 Follow up: Response: Pain is decreased tr5 14:47 Drug: Zofran 4 mg Route: IVP; Site: left antecubital; tr5 16:08 Follow up: Response: Nausea is decreased tr5 14:47 Drug: TORadol 30 mg Route: IVP; Site: left antecubital; tr5 16:10 Follow up: Response: Pain is decreased tr5 16:34 Drug: Cefepime 2 grams Route: IVPB; Rate: 200 ml/hr; Infused Over: 30 mins; Site: left tr5 antecubital; 17:05 Drug: NS 0.9% 1000 ml Route: IV; Rate: 1 bolus; Site: left antecubital; tr5 Disposition: 07/18/19 16:51 Hospitalization ordered by Hilary Farias for Inpatient Admission. Preliminary diagnosis are acute vomiting, acute abdominal pain, UTI , acute renal insufficiency. - Bed requested for Telemetry/MedSurg (Inpatient). - Status is Inpatient Admission. tr5 - Condition is Stable. - Problem is new. - Symptoms have improved. UTI on Admission? Yes Signatures: Dispatcher [employer] EDKS Yuko Barraza RN RN sv Smirch, Shelby, RN RN Gabriela Schilling RN RN 2 Yemi Ennis MD MD wa Rodriguez, Tommie, RN RN tr5 Corrections: (The following items were deleted from the chart) 17:23 16:51 Hospitalization Ordered by Hilary Farias MD for Inpatient Admission. Preliminary diagnosis is acute vomiting; acute abdominal pain; UTI ; acute renal insufficiency. Bed requested for Telemetry/MedSurg (Inpatient). Status is Inpatient Admission. Condition is Stable. Problem is new. Symptoms have improved. UTI on Admission? Yes. sd 18:55 17:23 07/18/2019 16:51 Hospitalization Ordered by Hilary Farias MD for Inpatient tr5 Admission. Preliminary diagnosis is acute vomiting; acute abdominal pain; UTI ; acute renal insufficiency. Bed requested for Telemetry/MedSurg (Inpatient). Status is Inpatient Admission. Condition is Stable. Problem is new. Symptoms have improved. UTI on Admission? Yes. ss
--- NOTE | 2019-07-18 16:52 | ER ---
Nurse's Notes [facility] Name: John Avila Age: 58 yrs Sex: Male : 1960 Arrival Date: 07/18/2019 Time: 12:27 Bed 28 Private MD: Diagnosis: acute vomiting;acute abdominal pain;UTI ;acute renal insufficiency Presentation: 07/18 12:34 Presenting complaint: Patient states: dizziness, n/v x 3 days. Transition of care: sv patient was not received from another setting of care. Onset of symptoms was July 15, 2019. Care prior to arrival: None. 12:34 Method Of Arrival: Ambulatory sv 12:34 Acuity: ZANDER 3 sv 13:48 Risk Assessment: Do you want to hurt yourself or someone else? Patient reports no tw2 desire to harm self or others. Initial Sepsis Screen: Does the patient meet any 2 criteria? No. Patient's initial sepsis screen is negative. Does the patient have a suspected source of infection? No. Patient's initial sepsis screen is negative. Triage Assessment: 12:34 General: Appears in no apparent distress. uncomfortable, Behavior is calm, cooperative, sv appropriate for age. Pain: Denies pain. Neuro: Level of Consciousness is awake, alert, obeys commands, Gait is steady, Reports dizziness. Respiratory: Respiratory effort is even, unlabored, Respiratory pattern is regular, symmetrical. GI: Reports nausea, vomiting. Historical: - Allergies: 12:34 NKDA; sv - Home Meds: 12:34 metformin 1,000 mg Oral tab 1 tab 2 times per day [Active]; lisinopril 40 mg Oral tab 1 sv tab once daily [Active]; carvedilol 25 mg Oral tab 1 tab 2 times per day [Active]; terbinafine HCl 250 mg oral tab 1 tab once daily [Active]; pioglitazone 30 mg oral tab 1 tab once daily [Active]; levothyroxine 75 mcg tab 1 tab once daily [Active]; finasteride 5 mg oral tab 1 tab once daily [Active]; Zofran (as hydrochloride) 8 mg Oral tab [Active]; 13:49 hydrochlorothiazide 25 mg Oral tab 1 tab once daily [Active]; tamsulosin 0.4 mg Oral tw2 cp24 1 cap once daily [Active]; - PMHx: 12:34 CHF; Diabetes - NIDDM; Hypertension; sv - Immunization history:: Adult Immunizations. - Social history:: Smoking status: . - Ebola Screening: : Patient denies travel to an Ebola-affected area in the 21 days before illness onset. - Family history:: not pertinent. - Hospitalizations: : No recent hospitalization is reported. Screenin:48 Abuse screen: Denies threats or abuse. Nutritional screening: No deficits noted. tw2 Tuberculosis screening: No symptoms or risk factors identified. Fall Risk Secondary diagnosis (15 points) impaired mobility. Assessment: 13:47 General: Appears in no apparent distress. Behavior is calm, cooperative, appropriate tw2 for age. Pain: Complains of pain in abdomen. Neuro: Level of Consciousness is awake, alert, obeys commands, Oriented to person, place, time, situation. Cardiovascular: Heart tones S1 S2 Patient's skin is warm and dry. Respiratory: Airway is patent Respiratory effort is even, unlabored, Respiratory pattern is regular, symmetrical, Breath sounds are clear bilaterally. GI: Abdomen is round non-distended, Bowel sounds present X 4 quads. Abd is soft X 4 quads Reports lower abdominal pain, upper abdominal pain, nausea, vomiting. : No signs and/or symptoms were reported regarding the genitourinary system. EENT: No signs and/or symptoms were reported regarding the EENT system. Derm: No signs and/or symptoms reported regarding the dermatologic system. Musculoskeletal: Range of motion: intact in all extremities. 15:14 Reassessment: Patient appears in no apparent distress at this time. Patient and/or tr5 family updated on plan of care and expected duration. Pain level reassessed. Patient is alert, oriented x 3, equal unlabored respirations, skin warm/dry/pink. 16:00 Reassessment: Patient appears in no apparent distress at this time. No changes from tr5 previously documented assessment. Patient and/or family updated on plan of care and expected duration. Pain level reassessed. Patient is alert, oriented x 3, equal unlabored respirations, skin warm/dry/pink. 17:00 Reassessment: Patient appears in no apparent distress at this time. Patient and/or tr5 family updated on plan of care and expected duration. Pain level reassessed. Vital Signs: 12:36 BP 116 / 60; Pulse 102; Resp 20; Temp 97.4(O); Pulse Ox 98% ; Weight 98.43 kg; Height 5 sv ft. 6 in. (167.64 cm); 13:50 BP 96 / 64; Pulse 90; Resp 19; Pulse Ox 100% on R/A; tw2 15:15 BP 106 / 72; Pulse 89; Resp 16; Pulse Ox 100% on R/A; tr5 16:00 BP 101 / 60; Pulse 88; Resp 18; Pulse Ox 99% on R/A; tr5 17:42 BP 112 / 95; Pulse 91; Resp 16; Pulse Ox 99% on R/A; tr5 12:36 Body Mass Index 35.02 (98.43 kg, 167.64 cm) sv ED Course: 12:27 Patient arrived in ED. as 12:34 Triage completed. sv 12:36 Arm band placed on. sv 13:32 Bed in low position. Call light in reach. monitor and storage bin tender on. Pulse ox on. NIBP on. tw2 Warm blanket given. 13:39 Gabriela Schilling RN is Primary Nurse. tw2 13:42 Yemi Ennis MD is Attending Physician. wa 13:57 Inserted saline lock: 20 gauge in left antecubital area, using aseptic technique. Blood tw2 collected. 14:00 Report given to sorin Venegas. tw2 14:07 CT Head Brain wo Cont In Process Unspecified. EDMS 14:45 EKG done, by hvac engineering technician. reviewed by Yemi Ennis MD. sm3 15:00 Stroud cath inserted, using sterile technique, 16 Fr., by ky, balloon inflated, to tr5 gravity drainage, urine specimen collected. 16:08 Urine Culture Sent. tr5 16:49 Hilary Farias MD is Hospitalizing Provider. wa 16:57 CT Abd/Pelvis - Without Contrast In Process Unspecified. EDMS 18:52 No provider procedures requiring assistance completed. Patient admitted, IV remains in tr5 place. Administered Medications: 14:46 Drug: NS 0.9% 1000 ml Route: IV; Rate: 1 bolus; Site: left antecubital; tr5 14:46 Drug: Pepcid 20 mg Route: IVP; Site: left antecubital; tr5 16:08 Follow up: Response: Pain is decreased tr5 14:47 Drug: Zofran 4 mg Route: IVP; Site: left antecubital; tr5 16:08 Follow up: Response: Nausea is decreased tr5 14:47 Drug: TORadol 30 mg Route: IVP; Site: left antecubital; tr5 16:10 Follow up: Response: Pain is decreased tr5 16:34 Drug: Cefepime 2 grams Route: IVPB; Rate: 200 ml/hr; Infused Over: 30 mins; Site: left tr5 antecubital; 17:05 Drug: NS 0.9% 1000 ml Route: IV; Rate: 1 bolus; Site: left antecubital; tr5 Outcome: 16:51 Decision to Hospitalize by Provider. wa 18:52 Admitted to Med/surg accompanied by tech, via stretcher, with chart, Report called to tr5 Lara MATT 18:52 Condition: stable 18:52 Instructed on the need for admit, Demonstrated understanding of 18:55 Patient left the ED. tr5 Signatures: Dispatcher [employer] Yuko Garcia RN RN sv Martinez, Amelia as Wise, Tara, RN RN tw2 Yemi Ennis MD MD wa Montes, Shakira 3 Kali Blancas RN RN tr5 Corrections: (The following items were deleted from the chart) 14:46 14:46 Pepcid 20 mg IVP in right antecubital tr5 tr5
[2019-07-18] MEDS ORDERED: CEFEPIME/SWI 2gm 2 GM/20 ML SYR IV ONE (17:00)
--- NOTE | 2019-07-18 17:17 | RAD REPORT ---
EXAM DESCRIPTION: CT - Abdomen Pelvis Wo Contrast - 07/18/2019 4:57 pm CLINICAL HISTORY: Abdominal pain. ABD PAIN COMPARISON: Stone Protocol dated 06/19/2019 TECHNIQUE: CT imaging of the abdomen and pelvis was performed without contrast. Solid organ, bowel a nd vascular assessment is limited due to lack of IV and oral contrast. All CT scans are performed using dose optimization technique as appropriate and may include automated exposure control or mA/KV adjustment according to patient size. FINDINGS: The lower lung rodriguez are clear. The liver, spleen, pancreas, adrenal glands and kidneys are within normal limits for a limited non-co ntrast examination. No bowel obstruction, free air, free fluid or abscess. The appendix is normal. Mild lower lumbar degenerative changes. IMPRESSION: No acute intra-abdominal or pelvic findings. A limited non-contrast examination was performed as detailed.
--- NOTE | 2019-07-18 17:42 | EKG ---
Test Date: 2019-07-18 Test Time: 14:22:07 [employer]: INGRID MEASUREMENT RESULTS: Intervals: Rate: 83 VT: 136 QRSD: 90 QT: 348 QTc: 408 [place]: P: 43 VT: 136 QRS: -2 T: 15 INTERPRETIVE STATEMENTS: Sinus rhythm with premature supraventricular complexes and premature ventricular complexes or fusion complexes Otherwise normal ECG Compared to ECG 06/19/2019 21:38:56 Atrial premature complex(es) now present Fusion complex(es) now present Ventricular premature complex(es) now present Myocardial infarct finding no longer present Electronically Signed On 07-18-19 17:41:22 CDT by Parish Cole
[2019-07-18] MEDS ORDERED: NA CHLORIDE 0.9% 1,000 ML IV SCH (18:13)
--- NOTE | 2019-07-18 18:13 | P.HP ---
Certification for Inpatient Patient admitted to: Inpatient With expected LOS: >2 Midnights Patient will require the following post-hospital care: None Practitioner: I am a practitioner with admitting privileges, knowledge of patient current condition, hospital course, and medical plan of care. Services: Services provided to patient in accordance with Admission requirements found in Title 42 Section 412.3 of the Code of Federal Regulations Patient History Date of Service: 07/18/19 Primary Care Provider: None Reason for admission: Suprapubic Pain History of Present Illness: This is a 58-year-old male with significant past medical history of hypertension , diabetes, congestive heart failure who presented to the ED complaining of having suprapubic abdominal pain along with nausea and vomiting. Patient stated that the pain started about 3 days ago and has been having intermittent pain since then. Patient stated that the pain has been getting progressively worse and thus he decided to come to the ER. Patient states that he has also been having associated nausea and vomiting along with dysuria. Patient also noticed that he was having low-grade fever at the house as well. Patient has an indwelling catheter for about 1 month which is not since been changed. He was recently seen by his primary care doctor about 4 months ago. Patient denies having any chest pain shortness of breath chills hematuria or any other associated symptoms. In the ER patient was seen and evaluated and was found to have possible UTI associated with indwelling catheter and thus was admitted to the hospital for further care. Allergies No Known Drug Allergies Allergy (Verified 04/01/16 22:08) Unknown Home medications list reviewed: Yes Home Medications: Levothyroxine [Synthroid*] 75 mcg PO [id number] 04/01/16 Tamsulosin HCl [Flomax] 0.4 mg PO DAILY 04/01/16 Codeine/APAP [Tylenol W/Codeine #3 tab] 1 tab PO Q6HP PRN #15 tab 04/08/16 Ondansetron HCl [Zofran] 4 mg PO QID PRN #15 tablet 04/08/16 - Past Medical/Surgical History Has patient received pneumonia vaccine in the past: No Diabetic: Yes -: DM -: CHF -: HTN Past Surgical History: Reviewed- Non-Contributory - Family History Family History: Reviewed- Non-Contributory - Family History Mother -: Hypertension, Diabetes Brother -: Heart disease, Hypertension, Diabetes - Social History Smoking Status: Never smoker Counseled patient to stop smoking for: less than 10 minutes Smoking therapy provided: Yes Patient receptive to therapy: Yes Alcohol use: No CD- Drugs: No Caffeine use: No Place of Residence: Home Review of Systems 10-point ROS is otherwise unremarkable Physical Examination - Physical Exam General: Alert, In no apparent distress HEENT: Atraumatic, PERRLA, Mucous membr. moist/pink, EOMI, Sclerae nonicteric Neck: Supple, 2+ carotid pulse no bruit, No LAD, Without JVD or thyroid abnormality Respiratory: Clear to auscultation bilaterally, Normal air movement Cardiovascular: Regular rate/rhythm, Normal S1 S2 Gastrointestinal: Normal bowel sounds, No tenderness Musculoskeletal: No tenderness Integumentary: No rashes Neurological: Normal gait, Normal speech, Normal strength at 5/5 x4 extr, Normal tone, Normal affect Lymphatics: No axilla or inguinal lymphadenopathy - Studies Laboratory Data (last 24 hrs) 07/18/19 13:57: PT 13.5 H, INR 1.15 07/18/19 13:57: WBC 8.5, Hgb 15.0, Hct 44.6, Plt Count 213 07/18/19 13:57: Sodium 139, Potassium 6.0 H*, BUN 120 H, Creatinine 4.75 H, Glucose 123 H, Magnesium 2.8 H D, Total Bilirubin 0.7, AST 20, ALT 33, Alkaline Phosphatase 51, Lipase 593 H Assessment and Plan - Problems (Diagnosis) (1) UTI (urinary tract infection) Current Visit: Yes Status: Acute Plan: Patient with possible indwelling catheter associated urinary tract infection -Stroud catheter changed in the ER -cultures collected at this time -started on IV Rocephin -urology is consulted at this time as well. Qualifiers: Urinary tract infection type: catheter-associated UTI Indwelling urinary catheter type: indwelling urethral catheter Encounter type: initial encounter Qualified Code(s): T83.511A - Infection and inflammatory reaction due to indwelling urethral catheter, initial encounter; N39.0 - Urinary tract infection , site not specified (2) Acute renal failure Onset Date: 04/02/16 Current Visit: No Status: Acute Plan: Acute kidney injury most likely secondary to infection -started on IV fluids here in the hospital -await nephrotoxic agent -will consult nephrology at this time Qualifiers: Acute renal failure type: unspecified Qualified Code(s): N17.9 - Acute kidney failure, unspecified (3) Hypertension Current Visit: Yes Status: Chronic Plan: Will restart home medication at this time Qualifiers: Hypertension type: essential hypertension Qualified Code(s): I10 - Essential (primary) hypertension (4) Diabetes Current Visit: Yes Status: Chronic Plan: Insulin sliding scale and Accu-Chek Qualifiers: Diabetes mellitus type: type 2 Diabetes mellitus unit control clerk insulin use: without chcf use Diabetes mellitus complication status: with kidney complications Diabetes mellitus complication detail: with chronic kidney disease Chronic kidney disease stage: stage 3 (moderate) Qualified Code(s): E11.22 - Type 2 diabetes mellitus with diabetic chronic kidney disease; N18.3 - Chronic kidney disease, stage 3 (moderate) (5) CHF (congestive heart failure) Current Visit: Yes Status: Chronic Plan: Patient will be on IV fluids due to acute renal failure. Will monitor closely for any worsening. Qualifiers: Heart failure type: systolic Heart failure chronicity: chronic Qualified Code(s): I50.22 - Chronic systolic (congestive) heart failure Discharge Plan: Home Plan to discharge in: Greater than 2 days - Advance Directives Does patient have a Living Will: No Does patient have a Durable POA for Healthcare: No - Code Status/Comfort Care Code Status Assessed: Yes Critical Care: No
[2019-07-18] MEDS: CEFTRIAXONE/SWI 1gm 1 GM/10 ML SYR IVP SCH (20:08)
[2019-07-18] MEDS: INSULIN -REGULAR HUMAN 50 UNIT/0.5 ML ML SQ SCH (20:17)
--- NOTE | 2019-07-18 20:49 | RAD REPORT ---
EXAM DESCRIPTION: US - Renal Ultrasound-Complete - 07/18/2019 8:38 pm CLINICAL HISTORY: Alex COMPARISON: Abdomen Exam Complete dated 04/05/2016; Abdomen Pelvis Wo Contrast dated 07/18/2019 FINDINGS: Both kidneys are normal in size, shape and echotexture. The right kidney measures 10.1 x 5.5 x 4.4 cm. Small benign right renal cyst. No hydronephrosis, foca l mass or perinephric fluid. The left kidney measures 9.8 x 6.0 x 5.7 cm. No hydronephrosis, focal mass or perinephric fluid. The urinary bladder is incompletely distended due to Stroud catheter. IMPRESSION: Unremarkable renal sonogram.
[2019-07-18 23:20] VITALS: BMI 32.3
[2019-07-18 23:31] LABS: Urine Appearance TURBID; Urine Bilirubin NEGATIVE (NEG); Urine Blood 3+ (NEG); Urine Color YELLOW; Urine Glucose NEGATIVE (NEG); Urine Protein TRACE (NEG); Urine Urobilinogen 0.2 mg/dL (0.2-1.0)
[2019-07-18 23:58] LABS: Urine Microscopic Reflex ORDER UMIC
[2019-07-19 00:57] LABS: Urine Bacteria <20 /HPF (NONE SEEN); Urine Culture Reflex Order NOT NEEDED
[2019-07-19 04:40] LABS: Absolute Lymphocytes (CBC) 1.1 K/uL (0.7-4.9); Basophils % 0.4 % (0-1.3); Hematocrit 40.3 % (39.6-49.0); Lymphocytes % 17.2 % (15.3-44.8); MPV 8.2 fL (7.6-11.3); RBC Red Blood Cell Count 4.75 M/uL (4.33-5.43)
[2019-07-19 04:59] LABS: Bilirubin Total 0.5 mg/dL (0.2-1.0); Potassium 5.4 mmol/L (3.5-5.1); Protein, Total 7.2 g/dL (6.4-8.2)
[2019-07-19] MEDS: LEVOTHYROXINE SOD 0.075 MG TAB PO SCH (05:09)
[2019-07-19] MEDS: INSULIN -REGULAR HUMAN 50 UNIT/0.5 ML ML SQ SCH ×4 (07:30→20:00)
[2019-07-19] MEDS ORDERED: PNEUMOCOCCAL VACCINE 0.5 ML IMVAC ONE (08:00)
[2019-07-19] MEDS ORDERED: INFLUENZA VACCINE (for 3y+) 0.5 ML DOSE IMVAC ONE (08:00)
[2019-07-19] MEDS: CEFTRIAXONE/SWI 1gm 1 GM/10 ML SYR IVP SCH (08:04)
[2019-07-19] MEDS ORDERED: Levofloxacin500mg IV 500 MG/100 ML BAG IV SCH (11:00)
[2019-07-19] MEDS: NA CHLORIDE 0.9% 1,000 ML IV SCH ×2 (11:00→20:00)
[2019-07-19] MEDS ORDERED: NA CHLORIDE 0.9% 1,000 ML IV SCH (11:00)
--- NOTE | 2019-07-19 11:20 | CON ---
Date of Consultation: 07/19/2019 Reason For Consultation: Elevated BUN and creatinine. 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 2.Hypertension. 3.Hyperlipidemia. 4.Patient had chronic kidney disease with baseline creatinine around 2s, recently admitted to the [facility] with renal failure. Creatinine upon admission was up to the 2. Upon discharge back in early June, creatinine down to 1.2. Patient had another episode of acute kidney injury back in March. At that time, it was secondary to obstruction, dehydration. Patient came to the hospital [facility] of nausea and vomiting for the last few days. Upon admission, creatinine was 4.7. Patient was started on aggressive hydration. Kidney function started to gradually trending down. Creatinine tod ay is 2.7. Potassium dropped from 6 to 5.4. Reviewing the record, patient denied taking any nonster oidal. No IV contrast. Had low blood pressure down to the 90. Patient also been on CELIA inhibitor. Past Medical History: 1.Diabetes complicated with neuropathy and nephropathy. 2.Hypertension. 3.Hyperlipidemia. 4.Chronic kidney disease, status post acute kidney injury. Baseline creatinine 1.2, GFR of 62 back in June 2019. Allergies: NO KNOWN DRUG ALLERGY. Home Medications: Flomax, codeine, Zofran, lisinopril, levothyroxine. Past Surgical History: Noncontributory. Family History: Positive for hypertension and diabetes. Social History: Denies smoking. Active alcohol. Denies drug abuse. Review of Systems: Head and Neck: No red eye. No ear pain. GI: Has nausea, vomiting. No diarrhea. : No polyuria. No dysuria. No hematuria. YARN REWINDER: Not applicable. Respiratory: No shortness of breath. Cardiovascular: No chest pain. Endocrine: No polydipsia. Skin: No rash. Neuro: Has neuropathy. Musculoskeletal: Has generalized body ache. Physical Examination: Vital Signs: When I saw the patient, blood pressure 118/66, pulse of 72, afebrile. Patient had good urine output of 1100. Chest: Clear to auscultation. Heart: S1, S2, regular. Abdomen: Soft, nontender. Extremities: No edema. Laboratory Data: Upon presentation, sodium 139, potassium 6, bicarb 20, BUN 120, creatinine 4.7, roland cium 9.6, albumin of 3.6. Today labs; sodium 144, potassium 5.4, bicarb 22, BUN 93, creatinine 2.7, calcium 8.7. Lipase 593. Blood sugar has been controlled. T-sat not done. Medications: Current medications the patient on, its include IV fluid normal saline 50 per hour, cef epime, levothyroxine, insulin. Renal ultrasound showing normal size kidney, 10.1/9.8, no hydronephro sis. Urinalysis; specific gravity of 1.010, rbc's 20, wbc's more than 50. Assessment And Plan: 1.Acute kidney injury, normal-sized kidney, proteinuric, non-nephrotic secondary to poor perfusion, acute tubular necrosis, prerenal secondary to gastrointestinal loss and toxic acute tubular necrosis secondary to urinary tract infection, low blood pressure. 2.I agree with holding CELIA inhibitor. 3.I am going to bolus the patient with another liter of normal saline and we will monitor the patien t closely. I am going to go ahead and increase IV fluid to 100 per hour. 4.Hypertension. Currently hypotension. With the presence of low blood pressure and acute kidney in jury, hold all blood pressure medications, especially CELIA inhibitor. 5.Hyperkalemia secondary to renal failure, superimposed with CELIA inhibitor, on the recovery. Contin ue hydration. No need for other treatment right now. 6.Urinary tract infection secondary to Streptococcus agalactiae. I will change antibiotic to Levaqu in. 7.Gastroenteritis. Continue Levaquin and symptomatic treatment. 8.Diabetes, as by the primary. 9.Chronic Stroud use, that had been placed 1 month ago. We will follow up with Urology. Luanne pittman. DEAN/KEVIN Voice ID: [id number] Report ID: [id number]
--- NOTE | 2019-07-19 12:20 | P.PN ---
Subjective Date of Service: 07/19/19 Primary Care Provider: None Chief Complaint: Suprapubic Pain Subjective: No C/O voiced, Tolerating diet, Improving, Working w/ PT, Doing well Review of Systems 10-point ROS is otherwise unremarkable Physical Examination - Vital Signs Temperature: 97.7 F Blood Pressure: 98/57 Pulse: 78 Respirations: 16 Pulse Ox (%): 94 - Physical Exam General: Alert, In no apparent distress HEENT: Atraumatic, PERRLA, EOMI Neck: Supple, JVD not distended Respiratory: Clear to auscultation bilaterally, Normal air movement Cardiovascular: Regular rate/rhythm, Normal S1 S2 Gastrointestinal: Normal bowel sounds, No tenderness Musculoskeletal: No tenderness Integumentary: No rashes Neurological: Normal speech, Normal tone, Normal affect Lymphatics: No axilla or inguinal lymphadenopathy - Studies Laboratory Data (last 24 hrs) 07/19/19 04:24: Phosphorus 4.8 07/19/19 04:24: Sodium 144, Potassium 5.4 H, BUN 93 H D, Creatinine 2.74 H D, Glucose 77, Total Bilirubin 0.5, AST 19, ALT 28, Alkaline Phosphatase 42 L 07/19/19 04:24: WBC 6.5 D, Hgb 13.7, Hct 40.3, Plt Count 175 07/18/19 13:57: PT 13.5 H, INR 1.15 07/18/19 13:57: WBC 8.5, Hgb 15.0, Hct 44.6, Plt Count 213 07/18/19 13:57: Sodium 139, Potassium 6.0 H*, BUN 120 H, Creatinine 4.75 H, Glucose 123 H, Magnesium 2.8 H D, Total Bilirubin 0.7, AST 20, ALT 33, Alkaline Phosphatase 51, Lipase 593 H Medications List Reviewed: Yes Assessment And Plan - Current Problems (Diagnosis) (1) UTI (urinary tract infection) Current Visit: Yes Status: Acute Plan: Patient with possible indwelling catheter associated urinary tract infection -Stroud catheter changed in the ER -cultures collected and growing Gram - rods at this time -Continue on IV rocephin -urology is consulted. Awaiting Reccs Qualifiers: Urinary tract infection type: catheter-associated UTI Indwelling urinary catheter type: indwelling urethral catheter Encounter type: initial encounter Qualified Code(s): T83.511A - Infection and inflammatory reaction due to indwelling urethral catheter, initial encounter; N39.0 - Urinary tract infection , site not specified (2) Acute renal failure Onset Date: 04/02/16 Current Visit: No Status: Acute Plan: Acute kidney injury most likely secondary to infection -Improved markedly today -started on IV fluids here in the hospital -avoid nephrotoxic agent -Nephrology consulted. Awaiting Reccs Qualifiers: Acute renal failure type: unspecified Qualified Code(s): N17.9 - Acute kidney failure, unspecified (3) Hypertension Current Visit: Yes Status: Chronic Plan: Home medication at this time Qualifiers: Hypertension type: essential hypertension Qualified Code(s): I10 - Essential (primary) hypertension (4) Diabetes Current Visit: Yes Status: Chronic Plan: Insulin sliding scale and Accu-Chek. Qualifiers: Diabetes mellitus type: type 2 Diabetes mellitus mcc insulin use: without oysterman use Diabetes mellitus complication status: with kidney complications Diabetes mellitus complication detail: with chronic kidney disease Chronic kidney disease stage: stage 3 (moderate) Qualified Code(s): E11.22 - Type 2 diabetes mellitus with diabetic chronic kidney disease; N18.3 - Chronic kidney disease, stage 3 (moderate) (5) CHF (congestive heart failure) Current Visit: Yes Status: Chronic Plan: CHF stable at this time -Will monitor closely at this time. Qualifiers: Heart failure type: systolic Heart failure chronicity: chronic Qualified Code(s): I50.22 - Chronic systolic (congestive) heart failure - Plan pending clinical improvement. Continue IV abx and F.u with Culture . Discharge Plan: Home Plan to discharge in: Greater than 2 days - Code Status/Comfort Care Code Status Assessed: Yes Critical Care: No
[2019-07-19 13:06] LABS: Urine Protein/Creatinine Ratio 0.86 ratio (<0.15)
[2019-07-20] MEDS: NA CHLORIDE 0.9% 1,000 ML IV SCH (00:51)
[2019-07-20 04:48] LABS: Basophils % 0.3 % (0-1.3); Hematocrit 39.4 % (39.6-49.0); Lymphocytes % 18.2 % (15.3-44.8); MPV 8.2 fL (7.6-11.3); RBC Red Blood Cell Count 4.64 M/uL (4.33-5.43)
[2019-07-20] MEDS: LEVOTHYROXINE SOD 0.075 MG TAB PO SCH (05:11)
[2019-07-20 05:13] LABS: Albumin 2.8 g/dL (3.4-5.0); Bilirubin Total 0.5 mg/dL (0.2-1.0); Phosphorus 2.7 mg/dL (2.5-4.9); Potassium 4.6 mmol/L (3.5-5.1); Protein, Total 6.8 g/dL (6.4-8.2)
[2019-07-20] MEDS: INSULIN -REGULAR HUMAN 50 UNIT/0.5 ML ML SQ SCH ×4 (07:30→21:00)
[2019-07-20] MEDS: AMOX/K CLAV 500 MG TAB PO SCH ×2 (09:02→21:01)
[2019-07-20] MEDS ORDERED: ONDANSETRON 4 MG (ODT) TAB PO ONE (10:39)
--- NOTE | 2019-07-20 12:37 | P.DS ---
Admission Date: 07/19/19 Discharge Date: 07/20/19 Primary Care Provider: None Disposition: ROUTINE DISCHARGE Discharge Condition: GOOD Reason for Admission: Suprapubic Pain - Problems (1) UTI (urinary tract infection) Current Visit: Yes Status: Acute Qualifiers: Urinary tract infection type: catheter-associated UTI Indwelling urinary catheter type: indwelling urethral catheter Encounter type: initial encounter Qualified Code(s): T83.511A - Infection and inflammatory reaction due to indwelling urethral catheter, initial encounter; N39.0 - Urinary tract infection , site not specified (2) Acute renal failure Onset Date: 04/02/16 Current Visit: No Status: Acute Qualifiers: Acute renal failure type: unspecified Qualified Code(s): N17.9 - Acute kidney failure, unspecified (3) Hypertension Current Visit: Yes Status: Chronic Qualifiers: Hypertension type: essential hypertension Qualified Code(s): I10 - Essential (primary) hypertension (4) Diabetes Current Visit: Yes Status: Chronic Qualifiers: Diabetes mellitus type: type 2 Diabetes mellitus superintendent marine oil terminal insulin use: without superintendent marine oil terminal use Diabetes mellitus complication status: with kidney complications Diabetes mellitus complication detail: with chronic kidney disease Chronic kidney disease stage: stage 3 (moderate) Qualified Code(s): E11.22 - Type 2 diabetes mellitus with diabetic chronic kidney disease; N18.3 - Chronic kidney disease, stage 3 (moderate) (5) CHF (congestive heart failure) Current Visit: Yes Status: Chronic Qualifiers: Heart failure type: systolic Heart failure chronicity: chronic Qualified Code(s): I50.22 - Chronic systolic (congestive) heart failure Brief History of Present Illness: This is a 58-year-old male with significant past medical history of hypertension , diabetes, congestive heart failure who presented to the ED complaining of having suprapubic abdominal pain along with nausea and vomiting. Patient stated that the pain started about 3 days ago and has been having intermittent pain since then. Patient stated that the pain has been getting progressively worse and thus he decided to come to the ER. Patient states that he has also been having associated nausea and vomiting along with dysuria. Patient also noticed that he was having low-grade fever at the house as well. Patient has an indwelling catheter for about 1 month which is not since been changed. He was recently seen by his primary care doctor about 4 months ago. Patient denies having any chest pain shortness of breath chills hematuria or any other associated symptoms. In the ER patient was seen and evaluated and was found to have possible UTI associated with indwelling catheter and thus was admitted to the hospital for further care. Hospital Course: Overall during the hospital stay patient remained stable. Patient was initially admitted to the hospital for indwelling catheter associated urinary tract infection along with [place]. Patient's catheter was removed and replaced in the ER. Urine cultures were collected from there. Patient was started on IV antibiotics here in the hospital along with IV fluids. Patient had marked improvement in his symptoms. Urine culture was positive for E. coli which was sensitive to doxycycline and thus patient was switched over to doxycycline. While here in the hospital patient is BN and creatinine also improved immensely. At that time patient was then discharged home under stable condition was asked to follow up with primary care provider along with nephrology in urology. Patient demonstrate understanding and thus was discharged home under stable condition. Vital Signs/Physical Exam: Temp Pulse Resp BP Pulse Ox 98.3 F 75 18 148/70 H 98 07/20/19 12:00 07/20/19 12:00 07/20/19 12:00 07/20/19 12:00 07/20/19 12:00 General: Alert, In no apparent distress HEENT: Atraumatic, PERRLA, EOMI Neck: Supple, JVD not distended Respiratory: Clear to auscultation bilaterally, Normal air movement Cardiovascular: Regular rate/rhythm, Normal S1 S2 Gastrointestinal: Normal bowel sounds, No tenderness Musculoskeletal: No tenderness Integumentary: No rashes Neurological: Normal speech, Normal tone, Normal affect Lymphatics: No axilla or inguinal lymphadenopathy Laboratory Data at Discharge: WBC 5.7 K/uL (4.3-10.9) 07/20/19 04:22 Hgb 13.1 g/dL (13.6-17.9) L 07/20/19 04:22 Hct 39.4 % (39.6-49.0) L 07/20/19 04:22 Plt Count 158 K/uL (152-406) 07/20/19 04:22 PT 13.5 SECONDS (9.5-12.5) H 07/18/19 13:57 INR 1.15 07/18/19 13:57 Sodium 143 mmol/L (136-145) 07/20/19 04:22 Potassium 4.6 mmol/L (3.5-5.1) 07/20/19 04:22 BUN 39 mg/dL (7-18) H D 07/20/19 04:22 Creatinine 1.45 mg/dL (0.55-1.3) H D 07/20/19 04:22 Glucose 78 mg/dL (74-106) 07/20/19 04:22 Phosphorus 2.7 mg/dL (2.5-4.9) 07/20/19 04:22 Magnesium 2.8 mg/dL (1.8-2.4) H D 07/18/19 13:57 Total Bilirubin 0.5 mg/dL (0.2-1.0) 07/20/19 04:22 AST 23 U/L (15-37) 07/20/19 04:22 ALT 26 U/L (12-78) 07/20/19 04:22 Alkaline Phosphatase 41 U/L (45-117) L 07/20/19 04:22 Lipase 593 U/L (73-393) H 07/18/19 13:57 Home Medications: Levothyroxine [Synthroid*] 75 mcg PO [id number] 04/01/16 Tamsulosin HCl [Flomax] 0.4 mg PO DAILY 04/01/16 Carvedilol 1 tab PO BID 07/18/19 Finasteride 1 tab PO DAILY 07/18/19 Metformin HCl 1 tab PO BID 07/18/19 Ondansetron HCl [Zofran] 2 tab PO BID 07/18/19 Pioglitazone [Actos*] 30 mg PO DAILY 07/18/19 Terbinafine HCl 1 tab PO DAILY 07/18/19 Doxycycline Monohydrate 100 mg PO BID #28 tablet 07/20/19 New Medications: Doxycycline Monohydrate 100 mg PO BID #28 tablet Diet: Regular Activity: Ad audra Followup: Manish Mcgill MD [ACTIVE - CAN ADMIT] - 1-2 Weeks Danie Flower MD [ACTIVE - CAN ADMIT] - 1-2 Weeks
--- NOTE | 2019-07-20 13:48 | RAD REPORT ---
EXAM DESCRIPTION: CT - Abdomen Pelvis Wo Contrast - 07/20/2019 1:35 pm CLINICAL HISTORY: Abdominal pain COMPARISON: July 18, 2019 TECHNIQUE: Computed axial tomography of the abdomen and pelvis was obtained. IV and oral contrast we re not requested. All CT scans are performed using dose optimization technique as appropriate and may include automated exposure control or mA/KV adjustment according to patient size. FINDINGS: The evaluation of solid organs, vessels and bowel is limited secondary to the lack of con trast administration. The liver, spleen, pancreas, adrenals and kidneys appear grossly normal. Cholecystectomy The appendix is normal. There is no evidence of diverticulitis. A Stroud catheter is present within the bladder. The prostate gland is mildly enlarged Spondylosis lumbar spine resulting in spinal stenosis IMPRESSION: No acute abnormality is displayed.
[2019-07-20] MEDS ORDERED: NA CHLORIDE 0.9% 500 ML IV ONE (16:32)
[2019-07-20] MEDS ORDERED: METOCLOPRAMIDE 10 MG/2mL INJ IV ONE (17:00)
--- NOTE | 2019-07-20 18:03 | PN ---
Subjective: The patient was admitted with uncontrolled diabetes, nausea and vomiting. UTI secondary to indwelling catheter. Physical Examination: Vital Signs: Blood pressure 140/66, pulse of 66, afebrile. Chest: Clear to auscultation. Heart: S1, S2. Regular. Abdomen: Soft, nontender. Extremities: No edema. Stroud with good flow. Laboratory Data: WBC 5.7, H and H 13.1/39.4, platelet 158. Sodium 143, potassium 4.6, bicarb 23, BU N 39, creatinine down to 1.4, GFR of 50, phosphorus 2.7, calcium 8.6. Current Medications: The patient on its include, 1.Augmentin. 2.Zofran. 3.Levothyroxine. 4.Insulin. Laboratory Data: Culture growing E coli, resistant to quinolone. Assessment And Plan: 1.Acute kidney injury secondary to prerenal, secondary to gastrointestinal loss and glucose diuresis , recovered, normal-sized kidney. I agree with holding IV fluid. 2.Urinary tract infection secondary to Escherichia coli. Option of treatment Macrobid or doxy. We will follow up. 3.Diabetes as by primary. 4.Gastroenteritis as by primary. 5.The patient is cleared from the renal standpoint for discharge. To follow up in the office in 2 t o 3 weeks. CARLOS Voice ID: [id number] Report ID: [id number]
[2019-07-21] MEDS: LEVOTHYROXINE SOD 0.075 MG TAB PO SCH (04:07)
[2019-07-21 05:17] LABS: Absolute Lymphocytes (CBC) 1.3 K/uL (0.7-4.9); Basophils % 0.6 % (0-1.3); Lymphocytes % 21.3 % (15.3-44.8); RBC Red Blood Cell Count 4.61 M/uL (4.33-5.43)
[2019-07-21 05:37] LABS: Albumin 2.6 g/dL (3.4-5.0); Bilirubin Total 0.5 mg/dL (0.2-1.0); Phosphorus 2.5 mg/dL (2.5-4.9); Potassium 4.3 mmol/L (3.5-5.1); Protein, Total 6.7 g/dL (6.4-8.2)
[2019-07-21] MEDS: INSULIN -REGULAR HUMAN 50 UNIT/0.5 ML ML SQ SCH ×4 (07:30→21:00)
--- NOTE | 2019-07-21 07:44 | EKG ---
Test Date: 2019-07-20 Test Time: 16:38:09 Scientific Process Operator: INGRID MEASUREMENT RESULTS: Intervals: Rate: 125 NC: 142 QRSD: 62 QT: 298 QTc: 430 Ewing: P: 60 NC: 142 QRS: 4 T: 48 INTERPRETIVE STATEMENTS: Sinus tachycardia Abnormal ECG Compared to ECG 07/18/2019 14:22:07 Sinus rhythm no longer present Electronically Signed On 07-21-19 07:43:37 CDT by Sampson Francis
[2019-07-21] MEDS: AMOX/K CLAV 500 MG TAB PO SCH (09:36)
--- NOTE | 2019-07-21 11:10 | P.PN ---
Subjective Date of Service: 07/21/19 Primary Care Provider: None Chief Complaint: Suprapubic Pain Subjective: Improving Today no new complaints stable VS Cr normalized pending speech and swallow cam be discharged from nephrology point of view and to follow with clinic in 2- 3 wks Physical Examination - Vital Signs Temperature: 98.1 F Blood Pressure: 123/66 Pulse: 67 Respirations: 16 Pulse Ox (%): 96 - Physical Exam General: Alert, In no apparent distress, Obese HEENT: Atraumatic Neck: Supple, Without JVD or thyroid abnormality Respiratory: Clear to auscultation bilaterally, Normal air movement Cardiovascular: No edema Gastrointestinal: Normal bowel sounds, Soft and benign, Non-distended, No ascites Musculoskeletal: No swelling - Studies Microbiology Data (last 24 hrs): 07/18/19 14:30 Clean Catch Urine [place] Count - Final >100,000 CFU/ML. 07/18/19 14:30 Clean Catch Urine - Final Escherichia Coli Enterococcus Faecalis Medications List Reviewed: Yes Assessment And Plan - Plan Acute kidney injury due to prerenal azotemia resolved UTI cont Abx DM as per primary Gastroenteritis resolved
--- NOTE | 2019-07-21 13:44 | RAD REPORT ---
EXAM DESCRIPTION: RAD - Barium Swallow Modified - 07/21/2019 1:38 pm CLINICAL HISTORY: Nausea and vomiting FINDINGS: Fluoroscopy time 2.1 minute. Sixteen fluoroscopic spot series obtained laryngeal pentration : cleared with thin pharyngeal residue : pyriform trace with al consistencies other : barium tablet passed into LES w/o incident , min-mild retropulsion observed with thin
[2019-07-21] MEDS ORDERED: ONDANSETRON 4 MG/2 ML VIAL IV PRN (14:43)
--- NOTE | 2019-07-21 15:25 | P.PN ---
Subjective Date of Service: 07/21/19 Primary Care Provider: None Chief Complaint: Suprapubic Pain Subjective: Other (Patient is still feels very weak. Poor oral intake noted. Some nausea noted) Physical Examination - Vital Signs Temperature: 98.4 F Blood Pressure: 139/72 Pulse: 63 Respirations: 18 Pulse Ox (%): 98 - Physical Exam General: Alert, In no apparent distress, Oriented x3, Cooperative HEENT: Atraumatic Neck: Supple Respiratory: Clear to auscultation bilaterally, Normal air movement Cardiovascular: Normal pulses, Regular rate/rhythm Gastrointestinal: Normal bowel sounds, Soft and benign, Non-distended, No tenderness, No masses, No rebound, No guarding Musculoskeletal: No erythema, No tenderness, No warmth Integumentary: No erythema, No warmth, No cyanosis Neurological: Normal speech, Normal strength at 5/5 x4 extr, Normal tone, Normal affect - Studies Microbiology Data (last 24 hrs): 07/18/19 14:30 Clean Catch Urine [place] Count - Final >100,000 CFU/ML. 07/18/19 14:30 Clean Catch Urine - Final Escherichia Coli Enterococcus Faecalis Medications List Reviewed: Yes Assessment & Plan Discharge Plan: Home Plan to discharge in: 48 Hours Physician Review Additional Text: Impression: UTI, urine culture positive for E. coli and enterococcus Acute renal injury secondary to dehydration Abdominal pain, nausea and vomiting suspect gastroenteritis versus GERD Diabetes mellitus type 2 with hyperglycemia Hypertension BPH Plan: UTI, urine culture positive for E. coli and enterococcus: Renal function improved. Urine culture reviewed. Will switch antibiotic to Macrobid due to sensitivities. Patient will need a course of 7 days. Will continue monitor closely. Physical therapy ordered along with dietary consultation to address daily needs. Still not ready for discharge. She I consulted to address nausea and vomiting. Anticipate discharge in the next 48 hr with clinical improvement. Acute renal injury secondary to dehydration: Renal function improved with IV hydration. Patient appears to be in his baseline level. Case discussed with Nephrology. Abdominal pain, nausea and vomiting suspect gastroenteritis versus GERD: Patient still with nausea and vomiting. Repeat CT scan unremarkable. Will start Protonix. Will consult GI for further recommendation. Swallow study unremarkable for significant aspiration. Await further recommendations from speech concerning diet. Encourage oral intake. Will provide medication for nausea. Patient still with increased fatigue likely related to poor oral intake. Plan for discharge home with home health and physical therapy until significantly improved. Will discuss with GI. Diabetes mellitus type 2 with hyperglycemia: Continue Accu-Cheks and monitor sliding scale. Previous A1c greater than 10. Patient may require insulin therapy at discharge. Consider discontinuing metformin due to GI related issues. Hypertension: Blood pressure stable off medication at this time. Continue off meds BPH: Restart home medication. Time Spent Managing Pts Care (In Minutes): 55
[2019-07-21] MEDS: ENOXAPARIN 40 MG/0.4 ML SQ SCH (16:53)
[2019-07-21] MEDS: NITROFURAN MACRO 100 MG CAP PO SCH (20:19)
[2019-07-22] MEDS: PANTOPRAZOLE 40MG TABLET PO SCH (06:05)
[2019-07-22] MEDS: LEVOTHYROXINE SOD 0.075 MG TAB PO SCH (06:05)
[2019-07-22 06:47] LABS: Absolute Lymphocytes (CBC) 1.3 K/uL (0.7-4.9); Basophils % 0.3 % (0-1.3); Hematocrit 43.2 % (39.6-49.0); Lymphocytes % 19.6 % (15.3-44.8); MPV 8.2 fL (7.6-11.3); RBC Red Blood Cell Count 5.06 M/uL (4.33-5.43)
[2019-07-22 07:09] LABS: Magnesium 1.5 mg/dL (1.8-2.4); Phosphorus 2.7 mg/dL (2.5-4.9); Potassium 4.1 mmol/L (3.5-5.1)
[2019-07-22] MEDS: INSULIN -REGULAR HUMAN 50 UNIT/0.5 ML ML SQ SCH ×4 (07:30→21:00)
--- NOTE | 2019-07-22 10:42 | P.PN ---
Subjective Date of Service: 07/22/19 Primary Care Provider: None Chief Complaint: Suprapubic Pain Subjective: Other (Patient reports slight improvement since yesterday. Less nausea noted. Still with poor oral intake. Patient reports history of urinary retention.) Physical Examination - Vital Signs Temperature: 97.9 F Blood Pressure: 125/77 Pulse: 86 Respirations: 18 Pulse Ox (%): 98 - Physical Exam General: Alert, In no apparent distress, Oriented x3, Cooperative HEENT: Atraumatic Neck: Supple Respiratory: Clear to auscultation bilaterally, Normal air movement Cardiovascular: Normal pulses, Regular rate/rhythm Gastrointestinal: Normal bowel sounds, Soft and benign, Non-distended, No masses , No rebound, No guarding Neurological: Normal speech, Normal strength at 5/5 x4 extr, Normal tone Urinary: Stroud catheter - Studies Medications List Reviewed: Yes Assessment & Plan Discharge Plan: Home Plan to discharge in: 24 Hours Physician Review Additional Text: Impression: UTI, urine culture positive for E. coli and enterococcus with history of urinary retention Acute renal injury secondary to dehydration Abdominal pain, nausea and vomiting suspect gastroenteritis versus GERD Diabetes mellitus type 2 with hyperglycemia Hypertension BPH with history of urinary retention Plan: UTI, urine culture positive for E. coli and enterococcus with history of urinary retention: Renal function stable. Patient was switched over to oral Macrobid yesterday. Patient will need course of 7 day treatment. Patient reports history of urinary retention. Will continue with Stroud catheter at this time. He was to follow up with urology as an outpatient. Will consult Urology at this time to consider removal of Stroud catheter. Will continue with physical therapy as well. Patient currently being evaluated for his nausea and vomiting. Case discussed with GI. Gastric emptying test done this morning. Will continue to reassess. Anticipate discharge in the next 48 hr with clinical improvement. Patient desires to go home with home health and physical therapy. Acute renal injury secondary to dehydration: Renal function stable this time. Nephrology currently consulted. Abdominal pain, nausea and vomiting suspect gastroenteritis versus GERD: Patient doing slightly better today. Less nausea noted. Still with poor oral intake. Patient has gastric emptying test done this morning. Await results. Case discussed with GI. Will continue with PPI. If patient still with increased nausea and difficulty with oral intake patient will likely require EGD. This will have to be done likely tomorrow if required. Will continue to monitor oral intake. Dietary consulted to address daily needs. Diabetes mellitus type 2 with hyperglycemia: Continue Accu-Cheks and monitor sliding scale. Previous A1c greater than 10. Patient may require insulin therapy at discharge. Consider discontinuing metformin due to GI related issues. Hypertension: Blood pressure stable off medication at this time. Continue off meds BPH with history of urinary retention: Home medication restarted. Stroud catheter in place. Urology to evaluate further. Await recommendation. Patient will likely require Stroud catheter at discharge and follow up with urology. Time Spent Managing Pts Care (In Minutes): 55
[2019-07-22] MEDS: TAMSULOSIN 0.4 MG SR CAP PO SCH (10:48)
[2019-07-22] MEDS: FINASTERIDE 5 MG TAB PO SCH (10:48)
[2019-07-22] MEDS: NITROFURAN MACRO 100 MG CAP PO SCH ×2 (10:49→21:43)
[2019-07-22] MEDS: ENSURE HIGH PROTEIN 237 ML CAN PO SCH ×2 (10:50→15:03)
--- NOTE | 2019-07-22 12:25 | RAD REPORT ---
EXAM DESCRIPTION: NM - Gastric Emptying Study - 07/22/2019 10:19 am CLINICAL HISTORY: Abdominal pain/ gastroparesis COMPARISON: None. TECHNIQUE: The patient was administered approximately 1 mCi Tc 99m sulfur colloid in solid egg meal. Imaging of the left upper quadrant was performed with time/activity curve generated. FINDINGS: The half-time gastric emptying equals 20 minutes. Normal value(45 minutes to 110 minutes ) Lag phase duration 2 minutes Retention at 120 minutes = 5 % IMPRESSION: Rapid gastric emptying
--- NOTE | 2019-07-22 13:34 | P.PN ---
Subjective Date of Service: 07/22/19 Primary Care Provider: None Chief Complaint: Suprapubic Pain Subjective: Improving Today no new complaints stable VS Cr normalized emptying study done today pending Gi evaluation can be discharged from nephrology point of view and to follow with clinic in 2- 3 wks Physical Examination - Vital Signs Temperature: 98.3 F Blood Pressure: 119/69 Pulse: 82 Respirations: 18 Pulse Ox (%): 98 - Physical Exam General: Alert, In no apparent distress HEENT: Atraumatic Neck: Supple, Without JVD or thyroid abnormality Respiratory: Clear to auscultation bilaterally, Normal air movement Cardiovascular: No edema, Regular rate/rhythm, Normal S1 S2, No gallops, No rubs , No murmurs Gastrointestinal: Normal bowel sounds, Soft and benign Musculoskeletal: No swelling - Studies Medications List Reviewed: Yes Assessment And Plan - Plan Acute kidney injury due to prerenal azotemia resolved UTI cont Abx DM as per primary Gastroenteritis resolved S/P gastric emptying study pending GI evaluation Urinary retention Cont Stroud
[2019-07-22] MEDS ORDERED: Magnesium Sulfate 2gm IVPB 2 G/50 ML BAG IV ONE (17:00)
[2019-07-22] MEDS: ENOXAPARIN 40 MG/0.4 ML SQ SCH (17:08)
[2019-07-23] MEDS: PANTOPRAZOLE 40MG TABLET PO SCH ×2 (05:29→20:56)
[2019-07-23] MEDS: LEVOTHYROXINE SOD 0.075 MG TAB PO SCH (05:29)
[2019-07-23 06:36] LABS: Absolute Lymphocytes (CBC) 1.4 K/uL (0.7-4.9); Basophils % 0.4 % (0-1.3); Hematocrit 42.9 % (39.6-49.0); Lymphocytes % 22.3 % (15.3-44.8); MPV 8.5 fL (7.6-11.3)
[2019-07-23 06:56] LABS: Albumin 3.1 g/dL (3.4-5.0); Magnesium 1.9 mg/dL (1.8-2.4); Phosphorus 2.8 mg/dL (2.5-4.9); Potassium 4.2 mmol/L (3.5-5.1)
[2019-07-23] MEDS: INSULIN -REGULAR HUMAN 50 UNIT/0.5 ML ML SQ SCH ×4 (07:30→20:56)
[2019-07-23] MEDS: ENSURE HIGH PROTEIN 237 ML CAN PO SCH ×2 (08:06→14:57)
[2019-07-23] MEDS: FINASTERIDE 5 MG TAB PO SCH (08:06)
[2019-07-23] MEDS: TAMSULOSIN 0.4 MG SR CAP PO SCH (08:06)
[2019-07-23] MEDS: NITROFURAN MACRO 100 MG CAP PO SCH ×2 (08:06→20:56)
--- NOTE | 2019-07-23 10:16 | P.DS ---
Admission Date: 07/19/19 Discharge Date: 07/23/19 Primary Care Provider: None Disposition: ROUTINE DISCHARGE Discharge Condition: GOOD Reason for Admission: Suprapubic Pain Consultations: GI-Dr. Rodriguez Nephrology-Dr. Nix Procedures: CT Ab: FINDINGS: The evaluation of solid organs, vessels and bowel is limited secondary to the lack of contrast administration. The liver, spleen, pancreas, adrenals and kidneys appear grossly normal. Cholecystectomy The appendix is normal. There is no evidence of diverticulitis. A Stroud catheter is present within the bladder. The prostate gland is mildly enlarged Spondylosis lumbar spine resulting in spinal stenosis IMPRESSION: No acute abnormality is displayed. Modified Barium Swallow: FINDINGS: Fluoroscopy time 2.1 minute. Sixteen fluoroscopic spot series obtained laryngeal pentration : cleared with thin pharyngeal residue : pyriform trace with al consistencies other : barium tablet passed into LES w/o incident , min-mild retropulsion observed with thin Gastric emptying study: FINDINGS: The half-time gastric emptying equals 20 minutes. Normal value(45 minutes to 110 minutes ) Lag phase duration 2 minutes Retention at 120 minutes = 5 % IMPRESSION: Rapid gastric emptying EGD: LA class B esophagitis in the lower esophagus. Portal hypertensive gastropathy in the body of the stomach. Moderate gastritis in the antrum, status post biopsies Multiple (around 10) small 2-3 mm clean based ulcers in the antrum. Multiple (around 6) erosions in the antrum. Duodenitis in the bulb of the duodenum Multiple 2 mm and dimunitive clean based ulcers in the bulb of the duodenum Medical problem list: UTI, urine culture positive for E. coli and enterococcus with history of urinary retention Acute renal injury secondary to dehydration Abdominal pain, nausea and vomiting secondary to esophagitis, gastritis, gastric ulcers, gastric erosions, duodenitis, duodenal ulcers Portal hypertensive gastropathy suspect liver disease Diabetes mellitus type 2 non insulin dependent with hyperglycemia History of Hypertension BPH with history of urinary retention Hypothyroidism Brief History of Present Illness: 58-year-old male with history of hypertension, diabetes presented to the emergency room with suprapubic abdominal pain. This started 3 days prior to admission. Patient also had nausea, vomiting with dysuria. Patient recently evaluated for urinary retention. Patient has chronic indwelling catheter that had not been changed in about 1 month. Patient found to have UTI with acute renal injury. Patient was admitted for further evaluation and treatment. Hospital Course: Patient presented with abdominal pain, nausea vomiting secondary to UTI complicated with chronic indwelling catheter with history of urinary retention. Patient also found to have acute renal injury with dehydration. Patient was started on IV fluids and antibiotic therapy. Nephrology was consulted. Patient improved with IV hydration and antibiotic therapy. Urine culture was positive for E coli and Enterococcus. Patient has responded well to therapy. Patient was also evaluated by GI concerning nausea and vomiting. Modified barium swallow was unremarkable for aspiration. Speech recommended regular solids, thin liquids and whole medications. General swallow safety precautions also recommended. Gastric emptying test showed rapid gastric emptying. GI recommended EGD evaluation. EGD showed: LA class B esophagitis in the lower esophagus. Portal hypertensive gastropathy in the body of the stomach. Moderate gastritis in the antrum, status post biopsies Multiple (around 10) small 2-3 mm clean based ulcers in the antrum. Multiple (around 6) erosions in the antrum. Duodenitis in the bulb of the duodenum Multiple 2 mm and dimunitive clean based ulcers in the bulb of the duodenum. GI recommends Protonix 40 mg 1 pill twice daily. Patient will need to follow up with GI to go over biopsy report. CT scan did not show any evidence of cirrhosis. Patient will need further workup to evaluate for possible underlying liver disease as an outpatient with GI. Concerning the UTI, at discharge patient will continue with Macrobid 100 mg twice daily for 5 more days. Patient will continue with his prior medication of Flomax 0.4 mg daily and finasteride 5 mg daily. Recommend to recheck urine after that time to monitor resolution. Recommend follow up with urology later this week to further monitor and address. Patient will continue with chronic indwelling catheter. Further evaluation and treatment for be chronic urinary catheter can be done by Urology. Indwelling catheter should be changed every month. Will set up an arrange for home health and physical therapy to address this further. Patient with diabetes mellitus type 2 [id number] with noted hyperglycemia. Patient previously on metformin and Actos. Prior A1c greater than 10. Patient was given insulin sliding scale during the course of his stay. At discharge patient will continue with metformin 1000 mg 1 pill twice daily and Actos 30 mg daily. Recommend blood sugar to maintain less than 140 fasting and less than 200 after meals. Further adjustment can be done by his PCP. Patient with history of hypertension. Medication-carvedilol has been discontinued. Blood pressure remained stable off medication. At discharge will recommend to continue off blood pressure medication-carvedilol. Recommend to monitor blood pressures daily. If blood pressures remain above 150/90 consistently then he is to contact his PCP for further recommendation. Patient with hypothyroidism. At discharge patient will continue with levothyroxine 75 mcg daily. Patient with obesity, BMI 32. Lifestyle modification education will be provided. Vital Signs/Physical Exam: Temp Pulse Resp BP Pulse Ox 98.1 F 64 16 112/65 98 07/23/19 08:00 07/23/19 08:00 07/23/19 08:00 07/23/19 08:00 07/23/19 08:00 General: Alert, In no apparent distress, Oriented x3, Cooperative HEENT: Atraumatic Neck: Supple Respiratory: Clear to auscultation bilaterally, Normal air movement Cardiovascular: Normal pulses, Regular rate/rhythm Gastrointestinal: Normal bowel sounds, Soft and benign, Non-distended, No tenderness, No masses, No rebound, No guarding Musculoskeletal: No erythema, No tenderness, No warmth Integumentary: No tenderness/swelling, No erythema, No warmth, No cyanosis Neurological: Normal speech, Normal strength at 5/5 x4 extr, Normal tone, Normal affect Laboratory Data at Discharge: WBC 6.4 K/uL (4.3-10.9) 07/23/19 05:39 Hgb 14.2 g/dL (13.6-17.9) 07/23/19 05:39 Hct 42.9 % (39.6-49.0) 07/23/19 05:39 Plt Count 173 K/uL (152-406) 07/23/19 05:39 PT 13.5 SECONDS (9.5-12.5) H 07/18/19 13:57 INR 1.15 07/18/19 13:57 Sodium 141 mmol/L (136-145) 07/23/19 05:30 Potassium 4.2 mmol/L (3.5-5.1) 07/23/19 05:30 BUN 17 mg/dL (7-18) 07/23/19 05:30 Creatinine 1.18 mg/dL (0.55-1.3) 07/23/19 05:30 Glucose 96 mg/dL (74-106) 07/23/19 05:30 Phosphorus 2.8 mg/dL (2.5-4.9) 07/23/19 05:30 Magnesium 1.9 mg/dL (1.8-2.4) 07/23/19 05:30 Total Bilirubin 0.5 mg/dL (0.2-1.0) 07/21/19 04:37 AST 19 U/L (15-37) 07/21/19 04:37 ALT 24 U/L (12-78) 07/21/19 04:37 Alkaline Phosphatase 39 U/L (45-117) L 07/21/19 04:37 Lipase 593 U/L (73-393) H 07/18/19 13:57 Home Medications: Levothyroxine [Synthroid*] 75 mcg PO [id number] 04/01/16 Tamsulosin HCl [Flomax] 0.4 mg PO DAILY 04/01/16 Finasteride 1 tab PO DAILY 07/18/19 Metformin HCl 1 tab PO BID 07/18/19 Ondansetron HCl [Zofran] 2 tab PO BID 07/18/19 Pioglitazone [Actos*] 30 mg PO DAILY 07/18/19 Ensure High Protein 237 ml PO BID* #60 can 07/23/19 Nitrofuran Macro [Macrobid*] 100 mg PO BID #10 cap 07/23/19 Pantoprazole [Protonix Tab] 40 mg PO BID #60 tab 07/23/19 New Medications: Ensure High Protein 237 ml PO BID* #60 can Nitrofuran Macro [Macrobid*] 100 mg PO BID #10 cap Pantoprazole [Protonix Tab] 40 mg PO BID #60 tab Patient Discharge Instructions: 1. Recommend follow up with PCP in 1 week to follow up this hospitalization. 2. Patient presented with abdominal pain, nausea vomiting secondary to UTI complicated with chronic indwelling catheter with history of urinary retention. Patient also found to have acute renal injury with dehydration. Patient was started on IV fluids and antibiotic therapy. Nephrology was consulted. Patient improved with IV hydration and antibiotic therapy. Urine culture was positive for E coli and Enterococcus. Patient has responded well to therapy. Patient was also evaluated by GI concerning nausea and vomiting. Modified barium swallow was unremarkable for aspiration. Speech recommended regular solids, thin liquids and whole medications. General swallow safety precautions also recommended. Gastric emptying test showed rapid gastric emptying. GI recommended EGD evaluation. EGD showed: LA class B esophagitis in the lower esophagus. Portal hypertensive gastropathy in the body of the stomach. Moderate gastritis in the antrum, status post biopsies. Multiple (around 10) small 2-3 mm clean based ulcers in the antrum. Multiple (around 6) erosions in the antrum. Duodenitis in the bulb of the duodenum. Multiple 2 mm and dimunitive clean based ulcers in the bulb of the duodenum. GI recommends Protonix 40 mg 1 pill twice daily. Patient will need to follow up with GI to go over biopsy report. CT scan did not show any evidence of cirrhosis. Patient will need further workup to evaluate for possible underlying liver disease as an outpatient with GI. 3. Concerning the UTI, at discharge patient will continue with Macrobid 100 mg twice daily for 5 more days. Patient will continue with his prior medication of Flomax 0.4 mg daily and finasteride 5 mg daily. Recommend to recheck urine after that time to monitor resolution. Recommend follow up with urology later this week to further monitor and address. Patient will continue with chronic indwelling catheter. Further evaluation and treatment for be chronic urinary catheter can be done by Urology. Indwelling catheter should be changed every month. Will set up an arrange for home health and physical therapy to address this further. 4. Patient with diabetes mellitus type 2 [id number] with noted hyperglycemia. Patient previously on metformin and Actos. Prior A1c greater than 10. Patient was given insulin sliding scale during the course of his stay. At discharge patient will continue with metformin 1000 mg 1 pill twice daily and Actos 30 mg daily. Recommend blood sugar to maintain less than 140 fasting and less than 200 after meals. Further adjustment can be done by his PCP. 5. Patient with history of hypertension. Medication-carvedilol has been discontinued. Blood pressure remained stable off medication. At discharge will recommend to continue off blood pressure medication-carvedilol. Recommend to monitor blood pressures daily. If blood pressures remain above 150 /90 consistently then he is to contact his PCP for further recommendation. 6. Patient with hypothyroidism. At discharge patient will continue with levothyroxine 75 mcg daily. 7. Patient with obesity, BMI 32. Lifestyle modification education will be provided. Diet: Regular Activity: Ad audra Followup: Manish Mcgill MD [ACTIVE - CAN ADMIT] - 1-2 Weeks Danie Flower MD [ACTIVE - CAN ADMIT] - 1-2 Weeks Time spent managing pt's care (in minutes): 55
[2019-07-23] MEDS ORDERED: PROPOFOL 200 MG/20 ML VIAL IV ONE (11:40)
--- NOTE | 2019-07-23 11:40 | P.PN ---
Subjective Date of Service: 07/23/19 Primary Care Provider: None Chief Complaint: Suprapubic Pain Subjective: Improving Today no new complaints stable VS Cr wnl can be discharged from nephrology point of view and to follow with clinic in 2- 3 wks Physical Examination - Vital Signs Temperature: 98.1 F Blood Pressure: 112/65 Pulse: 64 Respirations: 16 Pulse Ox (%): 98 - Physical Exam General: In no apparent distress, Oriented x3 HEENT: Atraumatic Neck: Supple, Without JVD or thyroid abnormality Respiratory: Clear to auscultation bilaterally, Normal air movement Cardiovascular: No edema, Regular rate/rhythm, Normal S1 S2, No gallops, No murmurs Gastrointestinal: Normal bowel sounds, Soft and benign, No ascites Musculoskeletal: No swelling - Studies Medications List Reviewed: Yes Assessment And Plan - Plan Acute kidney injury due to prerenal azotemia resolved UTI cont Abx DM as per primary Gastroenteritis resolved S/P gastric emptying study pending GI evaluation Urinary retention Cont Stroud
[2019-07-23] MEDS ORDERED: NA CHLORIDE 0.9% 1,000 ML ONE (11:42)
--- NOTE | 2019-07-23 12:30 | ENDO RPT ---
[address], [address] EGD PROCEDURE REPORT EXAM DATE: 07/23/2019 PATIENT NAME: John Avila MR#: [id number] BIRTHDATE: 1960 ATTENDING: Yemi Rodriguez Dr STATUS: inpatient REPAIR SPECIALIST: Danika Bermudez and Jackie Godwin RN INDICATIONS: The patient is a 58 yr old Male here for an EGD due to general abdominal pain and nausea and vomiting PROCEDURE PERFORMED: EGD with biopsy MEDICATIONS: Per Anesthesia. TOPICAL ANESTHETIC: none CONSENT: The patient understands the risks and benefits of the procedure and understands that these risks include, but are not limited to: sedation, allergic reaction, infection, perforation and/or bleeding. Alternative means of evaluation and treatment include, among others: physical exam, x-rays, and/or surgical intervention. The patient elects to proceed with this endoscopic procedure. DESCRIPTION OF PROCEDURE: During intra-op preparation period all mechanical medical equipment was checked for proper function. Hand hygiene and appropriate measures for infection prevention was taken. Procedure, possible complications, and alternatives including but not limited to the possibility of bleeding, perforation, tear, infection, sepsis, need for surgery, need for blood transfusion, and anesthesia related complications were explained to the patient. After the risks, benefits and alternatives of the procedure were thoroughly explained, Informed consent was verified, confirmed and timeout was successfully executed by the treatment team. The patient was placed in the left lateral position. The patient was anesthetized with topical anesthesia. Through the anesthetized oropharyngeal area, the scope was passed without any difficulty. The [id number] ([id number]) endoscope was introduced through the mouth and advanced to the second portion of the duodenum. Retroflexed views revealed no abnormalities. The gastroscope was then slowly withdrawn and removed. LA class B esophagitis was found in the lower esophagus. Gastropathy was found in the body of the stomach. Moderate gastritis was found in the antrum. Multiple biopsies were obtained and sent to pathology. Multiple ulcers were found in the antrum. Multiple erosions were found in the antrum. Duodenitis was found in the bulb of the duodenum. Multiple ulcers were found in the bulb of the duodenum. ADVERSE EVENTS: There were no complications. IMPRESSIONS: 1. LA class B esophagitis in the lower esophagus 2. Portal hypertensive gastropathy in the body of the stomach 3. Moderate gastritis in the antrum, s/p biopsies 4. Multiple ( 10) small 2-3 mm clean-based ulcers in the antrum 5. Multiple (6) erosions in the antrum 6. Duodenitis in the bulb of the duodenum RECOMMENDATIONS: 1. await biopsy results 2. acid suppression therapy REPEAT EXAM: eYmi Rodriguez Dr eSigned: Yemi Rodriguez Dr 07/23/2019 12:29 PM cc: Kirit Lara D.O. CPT CODES: ICD9 CODES: PATIENT NAME: John Avila MR#: [id number]
--- NOTE | 2019-07-23 12:32 | ENDO RPT ---
[address], [address] EGD PROCEDURE REPORT EXAM DATE: 07/23/2019 PATIENT NAME: John Avila MR#: [id number] BIRTHDATE: 1960 ATTENDING: Yemi Rodriguez Dr STATUS: inpatient SALES OPERATIONS MANAGER: Danika Bermudez and Jackie Godwin RN INDICATIONS: The patient is a 58 yr old Male here for an EGD due to general abdominal pain and nausea and vomiting PROCEDURE PERFORMED: EGD with biopsy MEDICATIONS: Per Anesthesia. TOPICAL ANESTHETIC: none CONSENT: The patient understands the risks and benefits of the procedure and understands that these risks include, but are not limited to: sedation, allergic reaction, infection, perforation and/or bleeding. Alternative means of evaluation and treatment include, among others: physical exam, x-rays, and/or surgical intervention. The patient elects to proceed with this endoscopic procedure. DESCRIPTION OF PROCEDURE: During intra-op preparation period all mechanical medical equipment was checked for proper function. Hand hygiene and appropriate measures for infection prevention was taken. Procedure, possible complications, and alternatives including but not limited to the possibility of bleeding, perforation, tear, infection, sepsis, need for surgery, need for blood transfusion, and anesthesia related complications were explained to the patient. After the risks, benefits and alternatives of the procedure were thoroughly explained, Informed consent was verified, confirmed and timeout was successfully executed by the treatment team. The patient was placed in the left lateral position. The patient was anesthetized with topical anesthesia. Through the anesthetized oropharyngeal area, the scope was passed without any difficulty. The [id number] ([id number]) endoscope was introduced through the mouth and advanced to the second portion of the duodenum. Retroflexed views revealed no abnormalities. The gastroscope was then slowly withdrawn and removed. LA class B esophagitis was found in the lower esophagus. Gastropathy was found in the body of the stomach. Moderate gastritis was found in the antrum. Multiple biopsies were obtained and sent to pathology. Multiple ulcers were found in the antrum. Multiple erosions were found in the antrum. Duodenitis was found in the bulb of the duodenum. Multiple ulcers were found in the bulb of the duodenum. ADVERSE EVENTS: There were no complications. IMPRESSIONS: 1. LA class B esophagitis in the lower esophagus 2. Portal hypertensive gastropathy in the body of the stomach 3. Moderate gastritis in the antrum, s/p biopsies 4. Multiple ( 10) small 2-3 mm clean-based ulcers in the antrum 5. Multiple (6) erosions in the antrum 6. Duodenitis in the bulb of the duodenum RECOMMENDATIONS: 1. await biopsy results 2. acid suppression therapy 3. liver work-up REPEAT EXAM: Yemi Rodriguez Dr eSigned: Yemi Rodriguez Dr 07/23/2019 12:32 PM Revised: 07/23/2019 12:32 PM cc: Kirit Lara D.O. CPT CODES: ICD9 CODES: PATIENT NAME: John Avila MR#: [id number]
--- NOTE | 2019-07-23 13:28 | P.DS ---
Admission Date: 07/19/19 Discharge Date: 07/23/19 Primary Care Provider: None Disposition: ROUTINE DISCHARGE Discharge Condition: GOOD Reason for Admission: Suprapubic Pain Consultations: GI-Dr. Rodriguez Nephrology-Dr. Nix Procedures: CT Ab: FINDINGS: The evaluation of solid organs, vessels and bowel is limited secondary to the lack of contrast administration. The liver, spleen, pancreas, adrenals and kidneys appear grossly normal. Cholecystectomy The appendix is normal. There is no evidence of diverticulitis. A Stroud catheter is present within the bladder. The prostate gland is mildly enlarged Spondylosis lumbar spine resulting in spinal stenosis IMPRESSION: No acute abnormality is displayed. Modified Barium Swallow: FINDINGS: Fluoroscopy time 2.1 minute. Sixteen fluoroscopic spot series obtained laryngeal pentration : cleared with thin pharyngeal residue : pyriform trace with al consistencies other : barium tablet passed into LES w/o incident , min-mild retropulsion observed with thin Gastric emptying study: FINDINGS: The half-time gastric emptying equals 20 minutes. Normal value(45 minutes to 110 minutes ) Lag phase duration 2 minutes Retention at 120 minutes = 5 % IMPRESSION: Rapid gastric emptying EGD: LA class B esophagitis in the lower esophagus. Portal hypertensive gastropathy in the body of the stomach. Moderate gastritis in the antrum, status post biopsies Multiple (around 10) small 2-3 mm clean based ulcers in the antrum. Multiple (around 6) erosions in the antrum. Duodenitis in the bulb of the duodenum Multiple 2 mm and dimunitive clean based ulcers in the bulb of the duodenum Medical problem list: UTI, urine culture positive for E. coli and enterococcus with history of urinary retention Acute renal injury secondary to dehydration Abdominal pain, nausea and vomiting secondary to esophagitis, gastritis, gastric ulcers, gastric erosions, duodenitis, duodenal ulcers Portal hypertensive gastropathy suspect liver disease Diabetes mellitus type 2 non insulin dependent with hyperglycemia History of Hypertension BPH with history of urinary retention Hypothyroidism Brief History of Present Illness: 58-year-old male with history of hypertension, diabetes presented to the emergency room with suprapubic abdominal pain. This started 3 days prior to admission. Patient also had nausea, vomiting with dysuria. Patient recently evaluated for urinary retention. Patient has chronic indwelling catheter that had not been changed in about 1 month. Patient found to have UTI with acute renal injury. Patient was admitted for further evaluation and treatment. Hospital Course: Patient presented with abdominal pain, nausea vomiting secondary to UTI complicated with chronic indwelling catheter with history of urinary retention. Patient also found to have acute renal injury with dehydration. Patient was started on IV fluids and antibiotic therapy. Nephrology was consulted. Patient improved with IV hydration and antibiotic therapy. Urine culture was positive for E coli and Enterococcus. Patient has responded well to therapy. Patient was also evaluated by GI concerning nausea and vomiting. Modified barium swallow was unremarkable for aspiration. Speech recommended regular solids, thin liquids and whole medications. General swallow safety precautions also recommended. Gastric emptying test showed rapid gastric emptying. GI recommended EGD evaluation. EGD showed: LA class B esophagitis in the lower esophagus. Portal hypertensive gastropathy in the body of the stomach. Moderate gastritis in the antrum, status post biopsies Multiple (around 10) small 2-3 mm clean based ulcers in the antrum. Multiple (around 6) erosions in the antrum. Duodenitis in the bulb of the duodenum Multiple 2 mm and dimunitive clean based ulcers in the bulb of the duodenum. GI recommends Protonix 40 mg 1 pill twice daily. Patient will need to follow up with GI to go over biopsy report. CT scan did not show any evidence of cirrhosis. Patient will need further workup to evaluate for possible underlying liver disease as an outpatient with GI. Concerning the UTI, at discharge patient will continue with Macrobid 100 mg twice daily for 5 more days. Patient will continue with his prior medication of Flomax 0.4 mg daily and finasteride 5 mg daily. Recommend to recheck urine after that time to monitor resolution. Recommend follow up with urology later this week to further monitor and address. Patient will continue with chronic indwelling catheter. Further evaluation and treatment for be chronic urinary catheter can be done by Urology. Indwelling catheter should be changed every month. Will set up an arrange for home health and physical therapy to address this further. Patient with diabetes mellitus type 2 [id number] with noted hyperglycemia. Patient previously on metformin and Actos. Prior A1c greater than 10. Patient was given insulin sliding scale during the course of his stay. At discharge patient will continue with metformin 1000 mg 1 pill twice daily and Actos 30 mg daily. Recommend blood sugar to maintain less than 140 fasting and less than 200 after meals. Further adjustment can be done by his PCP. Patient with history of hypertension. Medication-carvedilol has been discontinued. Blood pressure remained stable off medication. At discharge will recommend to continue off blood pressure medication-carvedilol. Recommend to monitor blood pressures daily. If blood pressures remain above 150/90 consistently then he is to contact his PCP for further recommendation. Patient with hypothyroidism. At discharge patient will continue with levothyroxine 75 mcg daily. Patient with obesity, BMI 32. Lifestyle modification education will be provided. Vital Signs/Physical Exam: Temp Pulse Resp BP Pulse Ox 99 F 71 16 108/62 98 07/23/19 12:44 07/23/19 12:44 07/23/19 12:44 07/23/19 12:44 07/23/19 11:40 Laboratory Data at Discharge: WBC 6.4 K/uL (4.3-10.9) 07/23/19 05:39 Hgb 14.2 g/dL (13.6-17.9) 07/23/19 05:39 Hct 42.9 % (39.6-49.0) 07/23/19 05:39 Plt Count 173 K/uL (152-406) 07/23/19 05:39 PT 13.5 SECONDS (9.5-12.5) H 07/18/19 13:57 INR 1.15 07/18/19 13:57 Sodium 141 mmol/L (136-145) 07/23/19 05:30 Potassium 4.2 mmol/L (3.5-5.1) 07/23/19 05:30 BUN 17 mg/dL (7-18) 07/23/19 05:30 Creatinine 1.18 mg/dL (0.55-1.3) 07/23/19 05:30 Glucose 96 mg/dL (74-106) 07/23/19 05:30 Phosphorus 2.8 mg/dL (2.5-4.9) 07/23/19 05:30 Magnesium 1.9 mg/dL (1.8-2.4) 07/23/19 05:30 Total Bilirubin 0.5 mg/dL (0.2-1.0) 07/21/19 04:37 AST 19 U/L (15-37) 07/21/19 04:37 ALT 24 U/L (12-78) 07/21/19 04:37 Alkaline Phosphatase 39 U/L (45-117) L 07/21/19 04:37 Lipase 593 U/L (73-393) H 07/18/19 13:57 Home Medications: Levothyroxine [Synthroid*] 75 mcg PO [id number] 04/01/16 Tamsulosin HCl [Flomax] 0.4 mg PO DAILY 04/01/16 Finasteride 1 tab PO DAILY 07/18/19 Metformin HCl 1 tab PO BID 07/18/19 Ondansetron HCl [Zofran] 2 tab PO BID 07/18/19 Pioglitazone [Actos*] 30 mg PO DAILY 07/18/19 Ensure High Protein 237 ml PO BID* #60 can 07/23/19 Nitrofuran Macro [Macrobid*] 100 mg PO BID #10 cap 07/23/19 Pantoprazole [Protonix Tab] 40 mg PO BID #60 tab 07/23/19 New Medications: Ensure High Protein 237 ml PO BID* #60 can Nitrofuran Macro [Macrobid*] 100 mg PO BID #10 cap Pantoprazole [Protonix Tab] 40 mg PO BID #60 tab Patient Discharge Instructions: 1. Recommend follow up with PCP in 1 week to follow up this hospitalization. 2. Patient presented with abdominal pain, nausea vomiting secondary to UTI complicated with chronic indwelling catheter with history of urinary retention. Patient also found to have acute renal injury with dehydration. Patient was started on IV fluids and antibiotic therapy. Nephrology was consulted. Patient improved with IV hydration and antibiotic therapy. Urine culture was positive for E coli and Enterococcus. Patient has responded well to therapy. Patient was also evaluated by GI concerning nausea and vomiting. Modified barium swallow was unremarkable for aspiration. Speech recommended regular solids, thin liquids and whole medications. General swallow safety precautions also recommended. Gastric emptying test showed rapid gastric emptying. GI recommended EGD evaluation. EGD showed: LA class B esophagitis in the lower esophagus. Portal hypertensive gastropathy in the body of the stomach. Moderate gastritis in the antrum, status post biopsies. Multiple (around 10) small 2-3 mm clean based ulcers in the antrum. Multiple (around 6) erosions in the antrum. Duodenitis in the bulb of the duodenum. Multiple 2 mm and dimunitive clean based ulcers in the bulb of the duodenum. GI recommends Protonix 40 mg 1 pill twice daily. Patient will need to follow up with GI to go over biopsy report. CT scan did not show any evidence of cirrhosis. Patient will need further workup to evaluate for possible underlying liver disease as an outpatient with GI. 3. Concerning the UTI, at discharge patient will continue with Macrobid 100 mg twice daily for 5 more days. Patient will continue with his prior medication of Flomax 0.4 mg daily and finasteride 5 mg daily. Recommend to recheck urine after that time to monitor resolution. Recommend follow up with urology later this week to further monitor and address. Patient will continue with chronic indwelling catheter. Further evaluation and treatment for be chronic urinary catheter can be done by Urology. Indwelling catheter should be changed every month. Will set up an arrange for home health and physical therapy to address this further. 4. Patient with diabetes mellitus type 2 [id number] with noted hyperglycemia. Patient previously on metformin and Actos. Prior A1c greater than 10. Patient was given insulin sliding scale during the course of his stay. At discharge patient will continue with metformin 1000 mg 1 pill twice daily and Actos 30 mg daily. Recommend blood sugar to maintain less than 140 fasting and less than 200 after meals. Further adjustment can be done by his PCP. 5. Patient with history of hypertension. Medication-carvedilol has been discontinued. Blood pressure remained stable off medication. At discharge will recommend to continue off blood pressure medication-carvedilol. Recommend to monitor blood pressures daily. If blood pressures remain above 150 /90 consistently then he is to contact his PCP for further recommendation. 6. Patient with hypothyroidism. At discharge patient will continue with levothyroxine 75 mcg daily. 7. Patient with obesity, BMI 32. Lifestyle modification education will be provided. Diet: Regular Activity: Ad audra Followup: Manish Mcgill MD [ACTIVE - CAN ADMIT] - 1-2 Weeks Danie Flower MD [ACTIVE - CAN ADMIT] - 1-2 Weeks
[2019-07-23] MEDS: ENOXAPARIN 40 MG/0.4 ML SQ SCH (16:01)
--- NOTE | 2019-07-23 17:31 | CON ---
Date of Consultation: 07/23/2019 Reason For Consultation: Generalized abdominal pain with nausea, vomiting. History Of Present Illness: Patient is a 58-year-old male with history of diabetes, hyperte nsion, congestive heart failure, hypothyroidism, indwelling Stroud catheter with possible BPH, and lionel al failure. Patient was admitted back to the hospital on July 18 after being discharged recentl y with urinary tract infection, nausea, vomiting, presume gastroparesis; however, gastric emptying st udy on this admission was negative. Actually revealing rapid gastric emptying and modified barium sw allow on this admission was largely unremarkable it appears. There was some mild laryngeal penetrati on, was clear with thin pharyngeal residue. The piriform sinuses were trace with all consistencies. Barium in tablet passed without incident, mild retropulsion observed with thin liquids it appears. I had a CT abdomen and pelvis which was negative on the . He needs further evaluation for this p ain, nausea, vomiting. He has pain reaches 7/10 level. No fevers, chills, night sweats. No melena, hematochezia, hematemesis, coffee-ground emesis, hematuria, dysuria, polydipsia, chest pain, short o f breath, diarrhea, constipation, change in bowel habits. Past Medical History: Significant for diabetes, hypertension, congestive heart failure, hypothyroidi sm, chronic indwelling Stroud catheter with possible BPH, renal failure, and prior UTIs. Medications: Include Lovenox, Ensure, Proscar, insulin, Levaquin, magnesium sulfate, Macrodantin, no rmal saline, IV fluids, Zofran, Protonix, Flomax. Allergies: NKDA. Social History: Single, never . No children. No tobacco. No alcohol. Disabled. Family History: Father of complications of alcohol abuse, presumed to be liver disease. Mother of complications with diabetes, peripheral vascular disease with surgical complications from he r BKA or AKA leading to her as he reports today. Review of Systems: Patient has general abdominal pain, nausea, vomiting, but no fevers, chills, night sweat, heat or col d intolerance, muscle aches, joint aches, backaches, diarrhea, constipation, change in bowel habits, change in weight, chest pain, shortness of breath, seizure, syncope. No depression, anxiety. Physical Examination: General: He is lying in bed, in no acute distress. 5 feet 6 inches, 201 pounds. BMI 32.4 kg/sq m. Temperature 98.1 degrees Fahrenheit, pulse 75, respirations 16, blood pressure 99/68, O2 sats 97%. HEENT: Normocephalic, atraumatic. Anicteric. Pupils equal, round, and reactive to light. Extraocu lar movements intact. Oropharynx is clear. Neck: Supple. No masses. Respirations: Clear to auscultation bilaterally. Cardiac: Regular rate and rhythm. No gallops or rubs. Abdomen: Positive bowel sounds. Soft, nontender, nondistended. No splenomegaly. Obese. Extremities: No clubbing, cyanosis. 2+ pulses. Neuro: Alert and oriented x3, grossly nonfocal. He had maybe some mild decrease in sensation in the lower extremities when able to move all extremities well. Laboratory Data: Patient has a white count of 6.4, hemoglobin of 14.2, hematocrit of 42.9, MCV of 86 , platelet count of 173, polys of 65%, lymphs 22%, monocytes 7%, eosinophils 5%. PT 13.5, INR of 1.2 . He has sodium 141, potassium 4.2, chloride 105, bicarb 20, BUN 17, creatinine of 1.2, glucose 96, calcium 9.0, phosphorus 3.8, magnesium 1.9, albumin 3.1. On the , patient AST of 19, ALT of 24, a lkaline phosphatase 39, total protein 6.7, albumin 2.6. PTH is 79.9. Lipase elevated on the at 593. UA on show 1+ ketones, 3+ blood, 3+ leukocyte esterase, 10 to 20 rbc's, 20 to 50 white ce lls, less than 5 squamous epithelial cells. Tox screen was negative. CT of the abdomen and pelvis o n the and repeat on the were both negative. Modified barium swallow as per above showed no problem with barium tablet. There was some retropulsion of thin liquids, some trace residual in the piriform sinuses and some mild laryngeal penetration was cleared, he reported. Gastric emptying rupinder dy actually revealed rapid gastric emptying. Impression: 1.Generalized abdominal pain, nausea, vomiting, 7/10 max, now down to 0. Currently no fevers or chi lls. 2.Acute renal failure with urinary tract infection and indwelling Stroud chronically. 3.History of diabetes, hypertension, congestive heart failure, hypothyroidism, possible BPH. Recommendations: 1.EGD. 2.PPI therapy. 3.Continue diet. Continue to monitor labs. ELSA Voice ID: [id number] Report ID: [id number]
[2019-07-23] MEDS ORDERED: METOPROLOL TARTRATE 5 MG/5 ML INJ IV STA (21:37)
[2019-07-24 04:45] VITALS: O2SAT 95
--- NOTE | 2019-07-24 05:19 | EKG ---
Test Date: 2019-07-23 Test Time: 22:55:11 Artillery Officer: RT Campa MEASUREMENT RESULTS: Intervals: Rate: 122 WI: 132 QRSD: 84 QT: 322 QTc: 458 [place]: P: 39 WI: 132 QRS: -21 T: 23 INTERPRETIVE STATEMENTS: Sinus tachycardia Inferior infarct, age undetermined Abnormal ECG Compared to ECG 07/20/2019 16:38:09 Myocardial infarct finding now present Electronically Signed On 07-24-19 05:19:18 [employer] by Sampson Francis
[2019-07-24 05:51] LABS: Absolute Lymphocytes (CBC) 1.2 K/uL (0.7-4.9); Basophils % 0.6 % (0-1.3); Hematocrit 39.2 % (39.6-49.0); Lymphocytes % 16.8 % (15.3-44.8); MPV 8.5 fL (7.6-11.3); RBC Red Blood Cell Count 4.68 M/uL (4.33-5.43)
[2019-07-24 06:03] LABS: Albumin 2.9 g/dL (3.4-5.0); Magnesium 1.7 mg/dL (1.8-2.4); Phosphorus 2.8 mg/dL (2.5-4.9); Potassium 3.8 mmol/L (3.5-5.1)
[2019-07-24] MEDS: LEVOTHYROXINE SOD 0.075 MG TAB PO SCH (06:16)
[2019-07-24] MEDS: INSULIN -REGULAR HUMAN 50 UNIT/0.5 ML ML SQ SCH (07:30)
[2019-07-24] MEDS ORDERED: POTASSIUM CL SA 10 MEQ TAB PO ONE (09:00)
[2019-07-24] MEDS ORDERED: MAGNESIUM SULFATE 1 gm IVPB 1 GM/100 ML BAG IV ONE (09:00)
[2019-07-24] MEDS: PANTOPRAZOLE 40MG TABLET PO SCH (09:39)
[2019-07-24] MEDS: TAMSULOSIN 0.4 MG SR CAP PO SCH (09:39)
[2019-07-24] MEDS: ENSURE HIGH PROTEIN 237 ML CAN PO SCH (09:39)
[2019-07-24] MEDS: NITROFURAN MACRO 100 MG CAP PO SCH (09:39)
[2019-07-24] MEDS: FINASTERIDE 5 MG TAB PO SCH (09:39)
--- NOTE | 2019-07-24 10:04 | ECHO ---
HEIGHT: 5 ft 6 in WEIGHT: 200 lb 8 oz DATE OF STUDY: 07/24/[address]: Derrick Hull MD 2-DIMENSIONAL: YES M.MODE: YES DOPPLER: YES COLOR FLOW: YES TDS: NO PORTABLE: NO DEFINITY: NO BUBBLE STUDY: NO DIAGNOSIS: SUPRA VENTRICULAR TACHYCARDIA CARDIAC HISTORY: CATHERIZATION: NO SURGERY: NO PROSTHETIC VALVE: NO PACEMAKER: NO MEASUREMENTS (cm) DIASTOLIC (NORMALS) SYSTOLIC (NORMALS) IVSd 1.1 (0.6-1.2) LA Diam 3.4 (1.9-4.0) LVEF 68% LVIDd 4.1 (3.5-5.7) LVIDs 2.6 (2.0-3.5) %FS 37% LVPWd 1.1 (0.6-1.2) Ao Diam 3.1 (2.0-3.7) 2 DIMENSIONAL ASSESSMENT: RIGHT ATRIUM: NORMAL LEFT ATRIUM: NORMAL RIGHT VENTRICLE: NORMAL LEFT VENTRICLE: NORMAL TRICUSPID VALVE: NORMAL MITRAL VALVE: NORMAL PULMONIC VALVE: NORMAL AORTIC VALVE: NORMAL PERICARDIAL EFFUSION: NONE AORTIC ROOT: NORMAL LEFT VENTRICULAR WALL MOTION: NORMAL. DOPPLER/COLOR FLOW: NORMAL. COMMENTS: NORMAL 2D ECHO WITH DOPPLER. TECHNOLOGIST: JL PÑIA
[2019-07-24 12:12] VITALS: BP 126/77; TEMP 98.2
--- NOTE | 2019-07-24 19:12 | CON ---
History Of Present Illness: 58-year-old male with history of diabetes , hypertension, CHF, hypothyroidism, has an indwelling catheter for number of weeks, this one was recently changed about 5 days ago, possible BPH, diabetic insensate bladder, has been diagnosed with gastroparesis and as the main reason for visiting hospital 3 times within the last few weeks or so. He has seen GI and cleared. He is on his way home. He did undergo urine culture, multiple bugs, sensitive to nitrofurantoin, which he is going home on. We will leave him on the Flomax also and do a voiding trial in the office when he comes to see me. Past Medical History: Diabetes, hypertension, CHF, hypothyroidism, BPH, renal failure, UTIs. Medications: Lovenox, Ensure, Proscar, Flomax, insulin, Levaquin, magnesium sulfate, Macrodantin. He is also on Zofran and Protonix. Allergies: NO KNOWN DRUG ALLERGIES. Social History: Never . No children. No tobacco. No alcohol. Disabled. Family History: Father of complications of alcohol abuse, presumed to be liver disease. Mother of complications of diabetes. Review of Systems: Otherwise negative. Physical Examination: Vital Signs: Afebrile and stable, 98.2, 74, 18, 126/77, and 98% sat on room air. HEENT: Atraumatic, normocephalic. Lungs: Clear. Heart: Regular rate and rhythm. S1, S2. Neck: Supple. No JVD. Lungs: Clear bilaterally. Abdomen: Soft, nontender. Stroud draining clear urine. LAI: Deferred for now, plan to check in office. 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 He is now on Flomax and Proscar and antibiotic for his_ urinary tract infection of enterococcus and Escherichia coli. Plan: Plan is to finish up his antibiotics at home. See me in a week or 2 for voiding trial. MEHRDAD/KEVIN Voice ID: [id number] Report ID: [id number]
--- NOTE | 2019-07-25 02:19 | PN ---
Date of Progress Note: 07/24/2019 Chief Complaint: Urinary tract infection, on antibiotics , symptoms resolving. Nonoliguric acute kidney injury due to prerenal azotemia, resolved. History: Patient has nonoliguric urine output. Blood pressure is in good control. Review of Systems: Denies fever, chills. Physical Examination: Lungs: Few crackles at bases. Heart: S1, S2. Abdomen: Soft, benign. Extremities: No edema. Impression And Plan: 1. Acute kidney injury secondary to prerenal azotemia. Monitor fluid balance. Creatinine level is 1.13. Electrolytes are stable. Patient received supplementation for hypomagnesemia. Continue adequate hydration , avoid NSAID. 2. Urinary tract infection. Continue antibiotics. Monitor for any evidence of urinary retention. Avoid NSAIS. 3. Hypertension , continue low Sodium diet and current blood pressure medications. 4. Hypovolemia, continue adequate hydration to prevent renal hypoperfusion and acute prerenal azotemia. SANTI/KEVIN Voice ID: [id number] Report ID: [id number] JENNY
[2019-07-26 09:27] LABS: HIV AG/AB 4TH GEN Non-reactive (Non-reactive)
[2019-07-27 02:37] LABS: HBsAG Nonreactive (Nonreactive)
[2019-07-28 17:38] LABS: Hep C Virus RNA (PCR)log <1.18 log IU/mL
--- OUTSIDE RECORDS SUMMARY | 2019-07-30 15:28 | XMS REPORT ---
:1960 [facility] Address [address] [place] [address] Dr. Fernandez [address] [place] [id number] Care Team Providers Name Role Phone Unavailable Unavailable Unavailable Problems This patient has no known problems. Allergies, Adverse Reactions, Alerts This patient has no known allergies or adverse reactions. Medications This patient has no known medications. Encounters Start End Encounter Admission Attending Care Care Encounter Date/Time Date/Time Type Type Clinicians Facility Department ID 2019-07-20 Outpatient [id number] 12:12:26 2019-07-04 Outpatient [id number] 11:41:23
== END 2019-07-24 14:14 | disposition home health service (06) | DRG 698 ==
LOC: ER 12:26 → ERHOLD 17:01 → 4TH 18:30 → OBSVTOIN 07-19 11:28
PROVIDERS: ADMIT Family Medicine; ATTEND Family Medicine
PROC: 0DD68ZX Extraction of Stomach, Via Natural or Artificial Opening Endoscopic, Diagnostic (ICD-10-PCS; principal; 2019-07-23 10:30)
DX: T83.511A Infection and inflammatory reaction due to indwelling urethral catheter, initial encounter (principal); N17.0 Acute kidney failure with tubular necrosis; I50.22 Chronic systolic (congestive) heart failure; I13.0 Hypertensive heart and chronic kidney disease with heart failure and stage 1 through stage 4 chronic kidney disease, or unspecified chronic kidney disease; K76.6 Portal hypertension; R64 Cachexia; E11.9 Type 2 diabetes mellitus without complications; N39.0 Urinary tract infection, site not specified; E11.22 Type 2 diabetes mellitus with diabetic chronic kidney disease; N18.3 Chronic kidney disease, stage 3 (moderate); E11.40 Type 2 diabetes mellitus with diabetic neuropathy, unspecified; E78.5 Hyperlipidemia, unspecified; E87.5 Hyperkalemia; B95.5 Unspecified streptococcus as the cause of diseases classified elsewhere; K52.9 Noninfective gastroenteritis and colitis, unspecified; K20.8 Other esophagitis; K31.89 Other diseases of stomach and duodenum; K29.60 Other gastritis without bleeding; K25.9 Gastric ulcer, unspecified as acute or chronic, without hemorrhage or perforation; K29.80 Duodenitis without bleeding; B96.20 Unspecified Escherichia coli [E. coli] as the cause of diseases classified elsewhere; E86.0 Dehydration; N40.0 Benign prostatic hyperplasia without lower urinary tract symptoms; Z28.21 Immunization not carried out because of patient refusal
CPT/HCPCS: 36415; 51702; 70450; 74150; 74176; 74230; 76770; 78264; 80048; 80053; 80069; 80074; 80076; 80307; 81003; 81015; 82570; 82947; 83690; 83735; 83970; 84100; 84156; 84484; 85025; 85610; 87077; 87086; 87088; 87186; 87389; 87522; 88305; 88312; 92611; 93005; 93306; 96374; 96375; 97112; 97116; 97161; 97166; 99285; A9541; G0378; J0692; J0696; J1650; J2405; J2704; J2765; J3475; J7030; J7040

== ENCOUNTER 2019-08-15 09:45 | Day surgery (SDC) | payer OTHER ==
[2019-08-10 13:42] LABS: Absolute Lymphocytes (CBC) 1.3 K/uL (0.7-4.9); Basophils % 0.6 % (0-1.3); Hematocrit 39.7 % (39.6-49.0); MPV 8.3 fL (7.6-11.3)
--- NOTE | 2019-08-10 13:45 | RAD REPORT ---
EXAM DESCRIPTION: RAD - Chest Pa And Lat (2 Views) - 08/10/2019 1:37 pm CLINICAL HISTORY: preop, pending prostate surgery COMPARISON: May 2019 TECHNIQUE: PA and lateral views of the chest were obtained. FINDINGS: The lungs are clear. Lung markings are similar to comparison. Heart size is normal and ce ntral vasculature is within normal limits. No pleural effusion or pneumothorax seen. No acute bony finding noted. No aortic abnormality. IMPRESSION: No acute cardiopulmonary process. No significant interval change.
[2019-08-10 13:50] LABS: Protime INR 1.16
[2019-08-10 13:51] LABS: Urine Appearance CLEAR; Urine Bilirubin NEGATIVE (NEG); Urine Blood 2+ (NEG); Urine Color YELLOW; Urine Glucose NEGATIVE (NEG); Urine Protein 2+ (NEG); Urine Specific Gravity 1.025 (1.005-1.030); Urine Urobilinogen 0.2 mg/dL (0.2-1.0)
[2019-08-10 13:55] LABS: Urine Microscopic Reflex ORDER UMIC
[2019-08-10 14:01] LABS: Potassium 3.6 mmol/L (3.5-5.1)
--- NOTE | 2019-08-10 14:12 | EKG ---
Test Date: 2019-08-10 Test Time: 13:19:46 Manufacturing Job Titles: CRYSTAL MEASUREMENT RESULTS: Intervals: Rate: 105 NE: 154 QRSD: 72 QT: 322 QTc: 425 [place]: P: 51 NE: 154 QRS: -4 T: 26 INTERPRETIVE STATEMENTS: Sinus tachycardia Otherwise normal ECG Compared to ECG 07/23/2019 22:55:11 Myocardial infarct finding no longer present Electronically Signed On 08-10-19 14:11:30 [employer]TERN WHE[employer] by Parish Cole
[2019-08-10 14:39] LABS: Urine Bacteria >50 /HPF (NONE SEEN); Urine Culture Reflex Order NOT NEEDED; Urine Mucus 2+ /HPF (NONE SEEN)
[2019-08-15] MEDS ORDERED: GENTAMICIN 80 MG/100 ML BAG 80 MG/100 ML BAG IV ONE (09:56)
[2019-08-15] MEDS ORDERED: NA CHLORIDE 0.9% 1,000 ML ONE (09:56)
[2019-08-15] MEDS ORDERED: FENTANYL CITR 100 MCG/2 ML ONE (10:50)
[2019-08-15] MEDS ORDERED: PROPOFOL 200 MG/20 ML VIAL IV ONE (10:50)
[2019-08-15] MEDS ORDERED: ONDANSETRON 4 MG/2 ML VIAL ONE (10:51)
[2019-08-15] MEDS ORDERED: MIDAZOLAM HCL 2 MG/2 ML INJ ONE (10:51)
[2019-08-15] MEDS ORDERED: EPHEDRINE SULF 50 MG/ML VIAL ONE (11:32)
[2019-08-15] MEDS ORDERED: MEPERIDINE HCL 25 MG/0.5 ML ONE (12:11)
[2019-08-15 12:40] VITALS: O2SAT 97
[2019-08-15] MEDS ORDERED: NA CHLORIDE 0.9% 500 ML ONE (13:02)
[2019-08-15] MEDS ORDERED: NACL 0.9% IRR SOLN 2,000 ML IRR ONE (14:30)
[2019-08-15 16:34] VITALS: BP 126/67; TEMP 97.3
[2019-08-17 19:00] LABS: Hepatitis C Virus RNA (PCR)log <1.18 log IU/mL
== END 2019-08-15 14:50 | disposition home or self-care (01) ==
LOC: OR 09:45
PROVIDERS: ATTEND Urology
PROC: 0VT08ZZ Resection of Prostate, Via Natural or Artificial Opening Endoscopic (ICD-10-PCS; principal; 2019-08-15 11:00)
DX: N40.1 Benign prostatic hyperplasia with lower urinary tract symptoms (principal); R33.8 Other retention of urine; R39.12 Poor urinary stream; N42.9 Disorder of prostate, unspecified; E11.9 Type 2 diabetes mellitus without complications; I10 Essential (primary) hypertension; E03.9 Hypothyroidism, unspecified; K21.9 Gastro-esophageal reflux disease without esophagitis; Z83.3 Family history of diabetes mellitus; Z82.49 Family history of ischemic heart disease and other diseases of the circulatory system
CPT/HCPCS: 93005; 87088; 85025; 80048; 36415; 85610; 82947; 88305; 85730; 87522; 71046; 52601; G0103; J2704; J2250; J3010; J2175; J7040; J7030; J1580; J2405; 81003; 81015; 87086

== ENCOUNTER 2021-02-19 06:57 | Emergency (ER) | payer OTHER ==
--- OUTSIDE RECORDS SUMMARY | 2021-02-19 07:00 | XMS REPORT | Continuity of Care Document ---
:1960 Author Organization [facility] t Address [address] [place] [address] Dr. Fernandez [address] [place] [id number] Care Team Providers Name Role Phone Unavailable Unavailable Unavailable Problems This patient has no known problems. Allergies, Adverse Reactions, Alerts This patient has no known allergies or adverse reactions. Medications This patient has no known medications. Procedures This patient has no known procedures. Encounters Start End Encounter Admission Attending Care Care Encounter Source Date/Time Date/Time Type Type Clinicians Facility Department ID 2019-07-20 Outpatient [id number] 12:12:26 2019-07-04 Outpatient [id number] 11:41:23 Results This patient has no known results.
[2021-02-19 08:00] LABS: Urine Blood Trace-intact (Negative); Urine Glucose Negative (Negative); Urine Protein Negative (Negative); Urine Specific Gravity 1.015 (1.005-1.030); Urine pH 6.5 (5.0-7.0)
[2021-02-19 08:18] LABS: Absolute Lymphocytes (CBC) 1.2 K/uL (0.7-4.9); Basophils % 0.4 % (0-1.3); Hematocrit 45.9 % (39.6-49.0); Lymphocytes % 11.1 % (15.3-44.8); MPV 8.3 fL (7.6-11.3); RBC Red Blood Cell Count 5.48 M/uL (4.33-5.43)
--- NOTE | 2021-02-19 08:20 | RAD REPORT ---
EXAM DESCRIPTION: CT - Stone Protocol - 02/19/2021 8:02 am CLINICAL HISTORY: Flank pain. ABD PAIN COMPARISON: Abdomen Pelvis Wo Contrast dated 07/20/2019 TECHNIQUE: Axial images were obtained without oral or IV contrast. Lack of contrast limits solid org an and vascular assessment. The [id number] spans the entirety of the system partially obscuring uppermost abdomen and lung bases. Coronal reformatted images were obtained and reviewed. All CT scans are performed using dose optimization technique as appropriate and may include automated exposure control or mA/KV adjustment according to patient size. FINDINGS: The lower lung rodriguez are clear. Cholecystectomy clips. Imaged portions of the liver and spleen show no suspicious findings on non-contrast imaging. The panc reas and adrenal glands are normal. No pathologic lymphadenopathy in the abdomen or pelvis. No urinary tract stones or obstructive uropathy. No bowel obstruction, free air, free fluid or abscess. Normal appendix noted. Mild to moderate lower lumbar degenerative spondylosis. Mildly enlarged prostate gland. IMPRESSION: No urinary tract stones or obstructive uropathy.
[2021-02-19 08:35] LABS: Bilirubin Direct 0.3 mg/dL (0-0.2); Bilirubin Total 1.2 mg/dL (0.2-1.0); Potassium 4.2 mmol/L (3.5-5.1); Protein, Total 8.4 g/dL (6.4-8.2)
--- NOTE | 2021-02-19 09:04 | EDPHYS ---
Physician Documentation [facility] Name: John Avila Age: 60 yrs Sex: Male : 1960 Arrival Date: 02/19/2021 Time: 07:15 Bed 14 Private MD: CHENCHO Physician Gerardo Pacheco HPI: 02/19 09:29 This 60 yrs old Male presents to ER via Ambulatory with complaints of Side tw4 Pain. 09:29 The patient presents with pain that is acute, with no known mechanism of injury. The tw4 symptoms are located in the low back. Onset: The symptoms/episode began/occurred yesterday. The pain does not radiate. Associated signs and symptoms: The patient has no apparent associated signs or symptoms. The problem was sustained without known cause. Modifying factors: The patient symptoms are alleviated by nothing, the patient symptoms are aggravated by any movement. The patient has experienced a previous episode. Historical: - Allergies: 07:26 NKDA; ph - PMHx: :26 CHF; Diabetes - NIDDM; Hypertension; ph - Immunization history:: Adult Immunizations not up to date. - Social history:: Smoking status: Patient denies any tobacco usage or history of. ROS: 09:29 Constitutional: Negative for fever, chills, and weight loss, Eyes: Negative for injury, tw4 pain, redness, and discharge, Cardiovascular: Negative for chest pain, palpitations, and edema, Respiratory: Negative for shortness of breath, cough, wheezing, and pleuritic chest pain, Abdomen/GI: Negative for abdominal pain, nausea, vomiting, diarrhea, and constipation, MS/Extremity: Negative for injury and deformity, Skin: Negative for injury, rash, and discoloration, Neuro: Negative for headache, weakness, numbness, tingling, and seizure. 09:29 Back: Positive for decreased range of motion, pain at rest, pain with movement, Negative for injury or acute deformity. Exam: 09:29 Constitutional: This is a well developed, well nourished patient who is awake, alert, tw4 and in no acute distress. Head/Face: Normocephalic, atraumatic. Chest/axilla: Normal chest wall appearance and motion. Nontender with no deformity. No lesions are appreciated. Cardiovascular: Regular rate and rhythm with a normal S1 and S2. No gallops, murmurs, or rubs. Normal PMI, no JVD. No pulse deficits. Respiratory: Lungs have equal breath sounds bilaterally, clear to auscultation and percussion. No rales, rhonchi or wheezes noted. No increased work of breathing, no retractions or nasal flaring. Abdomen/GI: Soft, non-tender, with normal bowel sounds. No distension or tympany. No guarding or rebound. No evidence of tenderness throughout. 09:29 Skin: Warm, dry with normal turgor. Normal color with no rashes, no lesions, and no evidence of cellulitis. MS/ Extremity: Pulses equal, no cyanosis. Neurovascular intact. Full, normal range of motion. Neuro: Awake and alert, GCS 15, oriented to person, place, time, and situation. Cranial nerves II-XII grossly intact. Motor strength 5/5 in all extremities. Sensory grossly intact. Cerebellar exam normal. Normal gait. 09:29 Back: pain, that is mild, ROM is normal, normal spinal alignment noted. Vital Signs: 07:24 BP 159 / 95; Pulse 80; Resp 18; Pulse Ox 98% on R/A; ph 08:45 BP 129 / 80; Pulse 83; Resp 20; Pulse Ox 95% on R/A; kg MDM: 08:46 Patient medically screened. tw4 09:29 Data reviewed: vital signs, nurses notes. Data interpreted: Pulse oximetry: tw4 Interpretation: normal. Counseling: I had a detailed discussion with the patient and/or guardian regarding: the historical points, exam findings, and any diagnostic results supporting the discharge/admit diagnosis. 02/19 07:34 Order name: Basic Metabolic Panel; Complete Time: 08:47 02/19 07:34 Order name: CBC with Diff; Complete Time: 08:47 4 02/19 08:49 Interpretation: Normal except: RBC 5.48; LYM% 11.1; MILLICENT% 83.0; NEUT A 8.6. 02/19 07:34 Order name: Hepatic Function; Complete Time: 08:47 02/19 08:47 Interpretation: Normal except: A/G 0.9; GLOB 4.4; TP 8.4; BILID 0.3; BILIT 1.2. 02/19 07:34 Order name: Lipase; Complete Time: 08:47 tw4 02/19 08:50 Interpretation: Within normal limits: LIP 112. tw4 02/19 07:48 Order name: CT Stone Protocol; Complete Time: 08:47 tw4 02/19 08:00 Order name: Urine Dipstick-Ancillary; Complete Time: 08:13 [facility] 02/19 07:34 Order name: IV Saline Lock; Complete Time: 07:54 tw4 02/19 07:34 Order name: Labs collected and sent; Complete Time: 07:54 tw4 02/19 07:48 Order name: Urine Dipstick-Ancillary (obtain specimen); Complete Time: 07:54 tw4 Administered Medications: 09:02 Drug: Zofran (Ondansetron) 4 mg Route: IVP; Site: left antecubital; kg 09:18 Follow up: Response: No adverse reaction kg 09:02 Drug: TORadol (ketorolac) 30 mg Route: IVP; Site: left antecubital; kg 09:18 Follow up: Response: No adverse reaction kg 09:03 Not Given (Physician changed order): morphine 4 mg IVP once; RASS on ADMIN: Combtv4, kg Very Agttd3, Agttd2, Rstlss1, AlertClm0, Drwsy-1, Lt Sdtn-2, Mod Sdtn-3, Dp Sdtn-4, UnArsble-5 Disposition: 02/19/21 09:03 Discharged to Home. Impression: Low back pain. - Condition is Stable. - Discharge Instructions: Back Pain, Adult, Chronic Back Pain, Pain Without a Known Cause. - Prescriptions for Cyclobenzaprine 10 mg Oral Tablet - take 1 tablet by ORAL route every 8 hours As needed; 30 tablet. Tramadol 50 mg Oral Tablet - take 1 tablet by ORAL route every 8 hours as needed; 12 tablet. - Medication Reconciliation Form, Thank You Letter, Antibiotic Education, Prescription Opioid Use form. - Follow up: Private Physician; When: Upon discharge from the Emergency Department; Reason: Recheck today's complaints, Continuance of care, Re-evaluation by your physician. - Problem is new. - Symptoms have improved. Signatures: Dispatcher [employer] [facility] Judi Fuentes RN RN Gerardo Pacheco MD MD tw4 Bonnie Lopez kg Corrections: (The following items were deleted from the chart) 09:18 09:03 02/19/2021 09:03 Discharged to Home. Impression: Low back pain. Condition is kg Stable. Forms are Medication Reconciliation Form, Thank You Letter, Antibiotic Education, Prescription Opioid Use. Follow up: Private Physician; When: Upon discharge from the Emergency Department; Reason: Recheck today's complaints, Continuance of care, Re-evaluation by your physician. Problem is new. Symptoms have improved. tw4
--- NOTE | 2021-02-19 09:04 | ER ---
Nurse's Notes [facility] Name: John Avila Age: 60 yrs Sex: Male : 1960 Arrival Date: 02/19/2021 Time: 07:15 Bed 14 Private MD: Diagnosis: Low back pain Presentation: 02/19 07:24 Chief complaint: Patient states: L posterior hip/buttock pain that started last night, ph pain does not radiate, denies injury or fall, states that pain is worse when walking. Coronavirus screen: Client denies travel out of the [place] in the last 14 days. Ebola Screen: No symptoms or risks identified at this time. Initial Sepsis Screen: Does the patient meet any 2 criteria? No. Patient's initial sepsis screen is negative. Does the patient have a suspected source of infection? No. Patient's initial sepsis screen is negative. Risk Assessment: Do you want to hurt yourself or someone else? Patient reports no desire to harm self or others. Onset of symptoms was February 19, 2021. 07:24 Method Of Arrival: Ambulatory 07:24 Acuity: ZANDER 4 ph Historical: - Allergies: 07:26 NKDA; ph - PMHx: 07:26 CHF; Diabetes - NIDDM; Hypertension; ph - Immunization history:: Adult Immunizations not up to date. - Social history:: Smoking status: Patient denies any tobacco usage or history of. Screenin:00 Abuse screen: Denies threats or abuse. Denies injuries from another. Nutritional kg screening: No deficits noted. Tuberculosis screening: No symptoms or risk factors identified. Fall Risk None identified. No fall in past 12 months (0 pts). No secondary diagnosis (0 pts). IV access (20 points). Ambulatory Aid- Crutches/Cane/Walker (15 pts). Gait- Weak (10 pts.). Mental Status- Oriented to own ability (0 pts). Total Tomlinson Fall Scale indicates Low Risk Score (25-44 pts). Assessment: 07:32 General: Appears in no apparent distress. Behavior is calm, cooperative, appropriate kg for age, quiet. Pain: Complains of pain in left gluteus genaro Pain radiates to left hip Pain currently is 7 out of 10 on a pain scale. at worst was 7 out of 10 on a pain scale. level that patient reports is acceptable is 3 out of 10 on a pain scale. Quality of pain is described as aching, Soreness Pain began 1 day ago. Neuro: No deficits noted. Level of Consciousness is awake, alert, obeys commands, Oriented to person, place, time, situation, Appropriate for age. Cardiovascular: No deficits noted. Heart tones S1 S2 Capillary refill < 3 seconds Pulses are all present. Respiratory: No deficits noted. Airway is patent Respiratory effort is even, unlabored, relaxed, Respiratory pattern is regular, Breath sounds are clear bilaterally. GI: No deficits noted. : No deficits noted. EENT: No deficits noted. Derm: No deficits noted. Musculoskeletal: Reports pain in left gluteus genaro since 02/18 \T\1700. Pain is 7 out of 10 on a pain scale. Vital Signs: 07:24 BP 159 / 95; Pulse 80; Resp 18; Pulse Ox 98% on R/A; ph 08:45 BP 129 / 80; Pulse 83; Resp 20; Pulse Ox 95% on R/A; kg ED Course: 07:15 Patient arrived in ED. am4 07:20 Bonnie Lopez is Primary Nurse. kg 07:26 Triage completed. ph 07:26 Arm band placed on Patient placed in an exam room, on a stretcher. ph 07:28 Gerardo Pacheco MD is Attending Physician. tw4 07:54 Inserted saline lock: 20 gauge in left antecubital area, using aseptic technique. kg 08:02 CT Stone Protocol In Process Unspecified. EDMS 09:16 No provider procedures requiring assistance completed. IV discontinued, intact, kg bleeding controlled, No redness/swelling at site. Pressure dressing applied. 09:17 Patient has correct armband on for positive identification. Bed in low position. Call kg light in reach. Side rails up X 1. Administered Medications: 09:02 Drug: Zofran (Ondansetron) 4 mg Route: IVP; Site: left antecubital; kg 09:18 Follow up: Response: No adverse reaction kg 09:02 Drug: TORadol (ketorolac) 30 mg Route: IVP; Site: left antecubital; kg 09:18 Follow up: Response: No adverse reaction kg 09:03 Not Given (Physician changed order): morphine 4 mg IVP once; RASS on ADMIN: Combtv4, kg Very Agttd3, Agttd2, Rstlss1, AlertClm0, Drwsy-1, Lt Sdtn-2, Mod Sdtn-3, Dp Sdtn-4, UnArsble-5 Outcome: 09:03 Discharge ordered by MD. kent 09:17 Discharged to home ambulatory. kg 09:17 Condition: good 09:17 Discharge instructions given to patient, Instructed on discharge instructions, follow up and referral plans. Demonstrated understanding of instructions, follow-up care, medications, Prescriptions given X 2. 09:18 Patient left the ED. kg Signatures: Dispatcher [employer] Judi Dexter RN RN Gerardo Pizano MD MD tw4 Yakelin Mckeon Kristen kg
[2021-02-19] MEDS ORDERED: MORPHINE 4 MG/ML SYR ONE (09:12)
[2021-02-19] MEDS ORDERED: ONDANSETRON 4 MG/2 ML VIAL ONE (09:12)
[2021-02-19] MEDS ORDERED: KETOROLAC 30 MG/ML INJ ONE (09:14)
[2021-02-19 09:26] VITALS: BP 129/80; O2SAT 95
== END 2021-02-19 09:18 | disposition home or self-care (01) ==
LOC: ER 06:57
DX: M54.5 Low back pain (principal); I10 Essential (primary) hypertension
CPT/HCPCS: 85025; 80048; 36415; 80076; 81003; 83690; 76377; 74176; J2405; 96374; 96375; 99284